=== PATIENT | male | born 1965 | race Caucasian/White ===

== ENCOUNTER 2019-07-03 17:46 | Inpatient (IN) | payer BC, MEDICAID ==
[2019-07-03] MEDS ORDERED: Ibuprofen 600 MG Tab PO ONE (18:31)
--- NOTE | 2019-07-03 18:38 | EDM.PDOC ---
ED HPI GENERAL MEDICAL PROBLEM - General Chief Complaint: Lower Extremity Injury/Pain Stated Complaint: KNEE SWELLED UP-COULD BE RELATED TO MEDS Time Seen by Provider: 07/03/19 18:33 Source of Information: Reports: Patient History Limitations: Reports: No Limitations - History of Present Illness INITIAL COMMENTS - FREE TEXT/NARRATIVE: pt arrived with a swollen red painful left leg. . This came up suddenly today. She has not had a injury. Onset: Today Duration: Hour(s): Location: Reports: Lower Extremity, Left Associated Symptoms: Reports: Fever/Chills knee Pain Score (Numeric/FACES): 6 - Related Data Allergies Allergy/AdvReac Type Severity Reaction Status Date / Time No Known Allergies Allergy Verified 07/03/19 18:11 Home Meds: Home Meds Gabapentin [Neurontin] 300 mg PO QID 07/03/19 [History] Naproxen 500 mg PO BID 07/03/19 [History] Past Medical History Musculoskeletal History: Reports: Back Pain, Chronic, Fracture, Other (See Below ) Other Musculoskeletal History: thumb - Infectious Disease History Infectious Disease History: Reports: Chicken Pox - Past Surgical History HEENT Surgical History: Reports: Myringotomy w Tube(s) Social & Family History - Tobacco Use Smoking Status *Q: Never Smoker - Caffeine Use Caffeine Use: Reports: Soda - Recreational Drug Use Recreational Drug Use: No Review of Systems - Review of Systems Review Of Systems: See Below Reason Not Obtained: pt arrived with a red hot left lowetr leg/ This did come up sudde Constitutional: Reports: Fever, Weakness Eyes: Reports: No Symptoms Ears: Reports: No Symptoms Nose: Reports: No Symptoms Mouth/Throat: Reports: No Symptoms Respiratory: Reports: No Symptoms Cardiovascular: Reports: No Symptoms GI/Abdominal: Reports: No Symptoms Genitourinary: Reports: No Symptoms, Other (swollen ) Musculoskeletal: Reports: No Symptoms ED EXAM, GENERAL - Physical Exam Exam: See Below Free Text/Narrative:: pt arrived with pain, redness and swelling in his left leg. This did come up suddenly today. He does not recall any wounds other than an area which is very scabed over. He did not injure the leg. Exam Limited By: No Limitations General Appearance: Alert, Anxious, Moderate Distress Ears: Normal TMs Nose: Normal Inspection Throat/Mouth: Normal Inspection Head: Atraumatic Neck: Normal Inspection Respiratory/Chest: No Respiratory Distress Cardiovascular: Regular Rate, Rhythm, Tachycardia GI/Abdominal: Soft, Non-Tender (Male) Exam: Deferred Rectal (Males) Exam: Deferred Back Exam: Normal Inspection Extremities: Other (pt has a normal rt leg. His left leg--lower is swollen very tight and is red from the ankle to the mid thigh. In the mid thigh area it is mainly red in the inner aspect of the leg. ) Neurological: Alert, Oriented, Normal Cognition Course - Vital Signs Last Recorded V/S: Last Vital Signs Temp 38.4 C H 07/03/19 18:09 Pulse 96 07/03/19 18:09 Resp 20 07/03/19 18:09 BP 142/84 H 07/03/19 18:09 Pulse Ox 97 07/03/19 18:09 - Orders/Labs/Meds Orders: Active Orders 24 hr Category Date Time Status CULTURE BLOOD [BC] Urgent Lab 07/03/19 18:30 Received CULTURE BLOOD [BC] Urgent Lab 07/03/19 18:40 Received Sodium Chloride 0.9% [Normal Saline] 1,000 ml Med 07/03/19 18:45 Active IV ASDIRECTED Sodium Chloride 0.9% [Normal Saline] 1,000 ml Med 07/03/19 19:30 Active IV ASDIRECTED Blood Culture x2 Reflex Set [OM.PC] Urgent Oth 07/03/19 18:21 Ordered Medication Orders Sodium Chloride (Normal Saline) 1,000 mls @ 999 mls/hr IV ASDIRECTED [facility] Last Admin: 07/03/19 20:08 Dose: 999 mls/hr Infusion: 07/03/19 19:55 Dose: 999 mls/hr Admin: 07/03/19 18:54 Dose: 999 mls/hr Sodium Chloride (Normal Saline) 1,000 mls @ 999 mls/hr IV ASDIRECTED [facility] Last Admin: 07/03/19 20:10 Dose: 999 mls/hr Labs: Laboratory Tests 07/03/19 07/03/19 07/03/19 Range/Units 18:40 18:40 18:45 WBC 16.0 H (4.5-11.0) K/uL RBC 4.92 (4.30-5.90) M/uL Hgb 13.9 (12.0-15.0) g/dL Hct 42.0 (40.0-54.0) % MCV 85 (80-98) fL MCH 28 (27-31) pg MCHC 33 (32-36) % Plt Count 200 (150-400) K/uL Neut % (Auto) 81 H (36-66) % Lymph % (Auto) 8 L (24-44) % [place] % (Auto) 10 H (2-6) % Eos % (Auto) 1 L (2-4) % Baso % (Auto) 0 (0-1) % Sodium 139 L (140-148) mmol/L Potassium 3.6 (3.6-5.2) mmol/L Chloride 103 (100-108) mmol/L Carbon Dioxide 26 (21-32) mmol/L Anion Gap 13.6 (5.0-14.0) mmol/L BUN 16 (7-18) mg/dL Creatinine 1.1 (0.8-1.3) mg/dL Est Cr Clr Drug Dosing 80.19 mL/min Estimated GFR (MDRD) > 60 (>60) Glucose 112 H (74-106) mg/dL Lactic Acid 2.3 H (0.4-2.0) mmol/L Calcium 8.9 (8.5-10.1) mg/dL Total Bilirubin 2.4 H (0.2-1.0) mg/dL AST 19 (15-37) U/L ALT 41 (12-78) U/L Alkaline Phosphatase 77 (46-116) U/L Total Protein 7.5 (6.4-8.2) g/dL Albumin 3.6 (3.4-5.0) g/dL Globulin 3.9 H (2.3-3.5) g/dL Albumin/Globulin Ratio 0.9 L (1.2-2.2) Meds: Medications Generic Name Dose Route Start Last Admin Trade Name Freq PRN Reason Stop Dose Admin Sodium Chloride 1,000 mls @ 999 mls/hr 07/03/19 18:45 07/03/19 20:08 Normal Saline IV 999 mls/hr ASDIRECTED VICTORIA Administration Sodium Chloride 1,000 mls @ 999 mls/hr 07/03/19 19:30 07/03/19 20:10 Normal Saline IV 999 mls/hr ASDIRECTED [facility] Administration Discontinued Medications Generic Name Dose Route Start Last Admin Trade Name Freq PRN Reason Stop Dose Admin Ceftriaxone Sodium 1 gm/ 50 mls @ 100 mls/hr 07/03/19 19:18 07/03/19 20:09 Sodium Chloride IV 07/03/19 19:47 100 mls/hr ONETIME ONE Administration Ibuprofen 600 mg 07/03/19 18:31 07/03/19 18:41 Motrin PO 07/03/19 18:32 600 mg ONETIME ONE Administration - Re-Assessments/Exams Free Text/Narrative Re-Assessment/Exam: 07/03/19 20:05 pt has a elevated wbc and a fever. His lactic acid id mildly elevated. He had a very rapid onset of the inflamation Departure - Departure Time of Disposition: 20:11 Disposition: Admitted As Inpatient 67 Condition: Fair Clinical Impression: Cellulitis of left leg - Discharge Information Referrals: Zuleika Chambers MD [Primary Care Provider] - Forms: ED Department Discharge Care Plan Goals: admit to Dr Gordon. - My Orders Last 24 Hours: My Active Orders 07/03/19 18:21 Blood Culture x2 Reflex Set [OM.PC] Urgent 07/03/19 18:30 CULTURE BLOOD [BC] Urgent 07/03/19 18:40 CULTURE BLOOD [BC] Urgent 07/03/19 18:45 Sodium Chloride 0.9% [Normal Saline] 1,000 ml IV ASDIRECTED 07/03/19 19:30 Sodium Chloride 0.9% [Normal Saline] 1,000 ml IV ASDIRECTED - Assessment/Plan Last 24 Hours: My Active Orders 07/03/19 18:21 Blood Culture x2 Reflex Set [OM.PC] Urgent 07/03/19 18:30 CULTURE BLOOD [BC] Urgent 07/03/19 18:40 CULTURE BLOOD [BC] Urgent 07/03/19 18:45 Sodium Chloride 0.9% [Normal Saline] 1,000 ml IV ASDIRECTED 07/03/19 19:30 Sodium Chloride 0.9% [Normal Saline] 1,000 ml IV ASDIRECTED
[2019-07-03] MEDS: Sodium Chloride 0.9% 1,000 ML IV SCH ×3 (18:54→22:31)
[2019-07-03] MEDS ORDERED: cefTRIAXone 1 GM in Sodium Chloride 0.9% 50 ML IV ONE (19:18)
[2019-07-03] MEDS ORDERED: Sodium Chloride 0.9% 1,000 ML IV SCH (19:30)
--- NOTE | 2019-07-03 20:04 | CRLUS ---
INDICATION: Left leg pain and swelling TECHNIQUE: Ultrasound venous duplex lower left extremity. Compression venous exam was performed using jones-scale, color Doppler, and spectral Doppler analysis. COMPARISON: None FINDINGS: Sonographic imaging demonstrates the left common femoral, deep femoral, superficial femoral, popliteal, posterior tibial and greater saphenous and the contralateral right common femoral veins to be fully compressible with normal color Doppler blood flow. Multiple left inguinal lymph nodes measuring up to 3.3 centimeters. IMPRESSION: No evidence of deep venous thrombosis left lower extremity. Multiple left inguinal lymph nodes with the largest measuring up to 3.3 centimeters. Dictated by Emiliano Yates MD @ 07/03/2019 8:03:59 PM Dictated by: Emiliano Yates MD @ 07/03/2019 20:04:07 (Electronically Signed)
--- NOTE | 2019-07-03 22:23 | HP ---
CHIEF COMPLAINT: Painful left leg. HISTORY OF PRESENT ILLNESS: A 54-year-old, who is otherwise healthy, has been dealing recently with some cervical radiculopathy. For the last 3 days, had increasing pain in his left leg where he has tried to work through it, but it has gotten more and more painful. He has been recently treated with gabapentin for cervical radiculopathy, but he thinks he is having side effects. He thought that this was a result of that he has been on his knees quite a bit and did sustain an area of abrasion with some scabbing about a week ago to the lateral aspect of his left knee. He called the clinic today thinking that he was having side effects of the gabapentin, wanted to stop it, but the nurse noted his symptoms and recommended that he go to the emergency room. He was evaluated by emergency room physician, was noted to have significant cellulitis to his left leg, and I was asked to admit the patient for further evaluation and treatment. The patient otherwise denies any other complaints. He has been battling a cold and he thinks he is having significant side effects from the gabapentin treating his cervical radiculopathy. CURRENT MEDICATIONS: Gabapentin 300 mg q.i.d. and naproxen 500 mg b.i.d. ALLERGIES: NO KNOWN DRUG ALLERGIES. PAST MEDICAL HISTORY: Cervical radiculopathy, otherwise no significant surgical medical problems. SOCIAL HISTORY: He is a nonsmoker. No significant alcohol use. FAMILY HISTORY: Mother had breast cancer, has heart disease on her side of the family. REVIEW OF SYSTEMS: Does have some cold symptoms. He does get a little bit short of breath at times, but no chest pain. No nausea, vomiting, diarrhea, or constipation. No urinary problems reported. He does have the pain, redness, and swelling to his left leg. He does have the neck pain with numbness in his fingers. OBJECTIVE: VITAL SIGNS: Temp 38.4, pulse 96, blood pressure 142/84, respiratory rate 20, O2 saturation 97% on room air, weight 131 kg. HEENT: Pharynx clear. NECK: Supple. No adenopathy or thyromegaly. LUNGS: Clear. HEART: Regular without murmurs. ABDOMEN: Soft, nontender. No mass or organomegaly palpated. EXTREMITIES: He does have increased warmth with tenderness, swelling, and erythema to his left leg, the inner aspect of his thigh extending down to the calf. Foot does not appear to be warm or red. He does have some scabbing lateral to the knee. DIAGNOSTIC DATA: Venous Doppler was negative for DVT. It did show multiple inguinal lymph nodes. LABORATORY DATA: White count 16,000 with 81% neutrophils, 8% lymphocytes, 10% monocytes. Hemoglobin 13.9, platelets 200,000. Sodium 139, potassium 3.6, chloride 103, glucose of 112, nonfasting. Liver functions were normal. Creatinine 1.1. Blood cultures have been obtained in the ER and are pending. ASSESSMENT AND PLAN: 1. Cellulitis, left leg. The patient has already been started on IV Rocephin, which we will continue. We will admit him inpatient. Anticipate more than 2 midnight stays. Transfer his care to the hospitalist service in the morning. 2. Cervical radicular radiculopathy, on gabapentin and naproxen, which we can continue. Otherwise, has been quite healthy. No history of diabetes. Emiliano Gordon MD /[id number]
[2019-07-03] MEDS: Naproxen 250 MG Tab PO SCH (22:31)
[2019-07-03] MEDS: Gabapentin 300 MG Cap PO SCH (22:31)
[2019-07-04] MEDS: Acetaminophen 325 MG Tab PO PRN ×2 (00:54→21:36)
[2019-07-04] MEDS: Sodium Chloride 0.9% 1,000 ML IV SCH (06:18)
[2019-07-04] MEDS: Gabapentin 300 MG Cap PO SCH ×4 (06:19→21:36)
[2019-07-04] MEDS ORDERED: Naproxen 250 MG Tab PO SCH (08:00)
[2019-07-04] MEDS: Naproxen 250 MG Tab PO SCH ×2 (08:27→16:42)
--- NOTE | 2019-07-04 09:38 | PCM.PN ---
- General Info Date of Service: 07/04/19 Subjective Update: No acute events overnight following admission. Patient thinks the redness and swelling have improved overnight. Muscle aches have nearly resolved. Still having a fair amount of pain in the left lower extremity and left medial thigh because of the infection. White blood cell count has improved. He's not having fevers. No nausea or shortness of breath. Functional Status: Reports: Pain Controlled, Tolerating Diet - Review of Systems General: Denies: Fever Musculoskeletal: Reports: Leg Pain - Patient Data Vitals - Most Recent: Last Vital Signs Temp 36.3 C 07/04/19 08:00 Pulse 83 07/04/19 02:00 Resp 12 07/04/19 08:00 BP 132/87 07/04/19 08:00 Pulse Ox 99 07/04/19 08:00 Weight - Most Recent: 131.542 kg I&O - Last 24 Hours: Intake & Output 07/03/19 07/04/19 07/04/19 22:59 06:59 14:59 Intake Total 1885 Output Total 300 300 550 Balance -300 1585 -550 Lab Results Last 24 Hours: Laboratory Results - last 24 hr 07/03/19 07/03/19 07/03/19 Range/Units 18:40 18:40 18:45 WBC 16.0 H (4.5-11.0) K/uL RBC 4.92 (4.30-5.90) M/uL Hgb 13.9 (12.0-15.0) g/dL Hct 42.0 (40.0-54.0) % MCV 85 (80-98) fL MCH 28 (27-31) pg MCHC 33 (32-36) % Plt Count 200 (150-400) K/uL Neut % (Auto) 81 H (36-66) % Lymph % (Auto) 8 L (24-44) % [place] % (Auto) 10 H (2-6) % Eos % (Auto) 1 L (2-4) % Baso % (Auto) 0 (0-1) % Sodium 139 L (140-148) mmol/L Potassium 3.6 (3.6-5.2) mmol/L Chloride 103 (100-108) mmol/L Carbon Dioxide 26 (21-32) mmol/L Anion Gap 13.6 (5.0-14.0) mmol/L BUN 16 (7-18) mg/dL Creatinine 1.1 (0.8-1.3) mg/dL Est Cr Clr Drug Dosing 80.19 mL/min Estimated GFR (MDRD) > 60 (>60) Glucose 112 H (74-106) mg/dL Lactic Acid 2.3 H (0.4-2.0) mmol/L Calcium 8.9 (8.5-10.1) mg/dL Total Bilirubin 2.4 H (0.2-1.0) mg/dL AST 19 (15-37) U/L ALT 41 (12-78) U/L Alkaline Phosphatase 77 (46-116) U/L Total Protein 7.5 (6.4-8.2) g/dL Albumin 3.6 (3.4-5.0) g/dL Globulin 3.9 H (2.3-3.5) g/dL Albumin/Globulin Ratio 0.9 L (1.2-2.2) 07/04/19 Range/Units 04:00 WBC 13.7 H (4.5-11.0) K/uL RBC 4.43 (4.30-5.90) M/uL Hgb 12.7 (12.0-15.0) g/dL Hct 38.5 L (40.0-54.0) % MCV 87 (80-98) fL MCH 29 (27-31) pg MCHC 33 (32-36) % Plt Count 175 (150-400) K/uL Neut % (Auto) (36-66) % Lymph % (Auto) (24-44) % [place] % (Auto) (2-6) % Eos % (Auto) (2-4) % Baso % (Auto) (0-1) % Sodium (140-148) mmol/L Potassium (3.6-5.2) mmol/L Chloride (100-108) mmol/L Carbon Dioxide (21-32) mmol/L Anion Gap (5.0-14.0) mmol/L BUN (7-18) mg/dL Creatinine (0.8-1.3) mg/dL Est Cr Clr Drug Dosing mL/min Estimated GFR (MDRD) (>60) Glucose (74-106) mg/dL Lactic Acid (0.4-2.0) mmol/L Calcium (8.5-10.1) mg/dL Total Bilirubin (0.2-1.0) mg/dL AST (15-37) U/L ALT (12-78) U/L Alkaline Phosphatase (46-116) U/L Total Protein (6.4-8.2) g/dL Albumin (3.4-5.0) g/dL Globulin (2.3-3.5) g/dL Albumin/Globulin Ratio (1.2-2.2) Med Orders - Current: Current Medications Acetaminophen (Tylenol) 650 mg PO Q4H PRN PRN Reason: Pain (Mild 1-3)/fever Last Admin: 07/04/19 00:54 Dose: 650 mg Gabapentin (Neurontin) 300 mg PO QID [facility] Last Admin: 07/04/19 06:19 Dose: Not Given Cefazolin Sodium/Dextrose 1 gm (/ Premix) 50 mls @ 100 mls/hr IV Q8H [facility] Lactobacillus Rhamnosus (Culturelle) 1 cap PO BID [facility] Naproxen (Naprosyn) 500 mg PO BIDMEALS [facility] Last Admin: 07/04/19 08:27 Dose: 500 mg Discontinued Medications Sodium Chloride (Normal Saline) 1,000 mls @ 999 mls/hr IV ASDIRECTED [facility] Last Admin: 07/03/19 20:08 Dose: 999 mls/hr Sodium Chloride (Normal Saline) 1,000 mls @ 999 mls/hr IV ASDIRECTED [facility] Last Admin: 07/03/19 20:10 Dose: 999 mls/hr Ceftriaxone Sodium 1 gm/ (Sodium Chloride) 50 mls @ 100 mls/hr IV ONETIME ONE Stop: 07/03/19 19:47 Last Admin: 07/03/19 20:09 Dose: 100 mls/hr Sodium Chloride (Normal Saline) 1,000 mls @ 125 mls/hr IV ASDIRECTED [facility] Last Admin: 07/04/19 06:18 Dose: 125 mls/hr Ceftriaxone Sodium 1 gm/ (Sodium Chloride) 50 mls @ 100 mls/hr IV Q24H [facility] Ibuprofen (Motrin) 600 mg PO ONETIME ONE Stop: 07/03/19 18:32 Last Admin: 07/03/19 18:41 Dose: 600 mg - Exam Quality Assessment: No: Supplemental Oxygen General: Alert, Oriented, Cooperative, No Acute Distress Lungs: Normal Respiratory Effort Cardiovascular: Regular Rate, Regular Rhythm GI/Abdominal Exam: Soft, No Distention Extremities: Increased Warmth (left leg from foot to mid thigh). No: Pedal Edema Skin: Warm, Dry, Rash (erythema from left foot to knee and some on distal thigh medially ) Psy/Mental Status: Alert, Normal Affect - Problem List Review Problem List Initiated/Reviewed/Updated: Yes - My Orders Last 24 Hours: My Active Orders 07/04/19 09:00 Lactobacillus Rhamnosus GG [Culturelle] 1 cap PO BID 07/04/19 09:45 Sodium Chloride 0.9% [Normal Saline] 1,000 ml IV ASDIRECTED 07/04/19 10:00 ceFAZolin [Ancef] 1 gm Premix Bag 1 bag IV Q8H - Plan Plan:: ASSESSMENT AND PLAN - Left leg cellulitis - clinically improving and white blood cell count trending down but still a fair amount of erythema and swelling. He does not have severe pain of the joints wide don't believe the joint is involved at this time. -Antibiotic coverage with cefazolin -Follow-up cultures -Pain control -Increase activity as tolerated Cervical radiculopathy - stable with use of gabapentin. Maintenance issues - - DVT prophylaxis - mechanical - GI prophylaxis - not indicated - Nutrition - regular Disposition - I would anticipate discharge home after the hospital stay Gustavo Regan M.D.
[2019-07-04] MEDS ORDERED: Sodium Chloride 0.9% 1,000 ML IV SCH (09:45)
[2019-07-04] MEDS: Lactobacillus Rhamnosus GG (Probiotic) Cap PO SCH ×2 (09:58→21:36)
[2019-07-04] MEDS: ceFAZolin 1 GM in Premix Bag 1 BAG IV SCH ×2 (09:59→18:03)
[2019-07-04] MEDS ORDERED: cefTRIAXone 1 GM in Sodium Chloride 0.9% 50 ML IV SCH (20:00)
[2019-07-05] MEDS: ceFAZolin 1 GM in Premix Bag 1 BAG IV SCH ×3 (01:28→17:26)
[2019-07-05] MEDS: Gabapentin 300 MG Cap PO SCH ×4 (06:15→22:00)
[2019-07-05] MEDS: Naproxen 250 MG Tab PO SCH ×2 (09:28→16:58)
[2019-07-05] MEDS: Lactobacillus Rhamnosus GG (Probiotic) Cap PO SCH ×2 (09:29→20:16)
--- NOTE | 2019-07-05 09:48 | PCM.PN ---
- General Info Date of Service: 07/05/19 Subjective Update: No acute events overnight. Pain in the left leg is decreasing. Swelling has been improving but he still has significant swelling around the knee and including the knee joint. No fevers overnight. Cultures negative so far. No nausea or abdominal pain. Functional Status: Reports: Pain Controlled, Tolerating Diet - Review of Systems General: Denies: Fever Musculoskeletal: Reports: Leg Pain, Joint Pain (left knee ) - Patient Data Vitals - Most Recent: Last Vital Signs Temp 36.0 C 07/05/19 03:58 Pulse 81 07/05/19 03:58 Resp 16 07/05/19 03:58 BP 105/61 07/05/19 03:58 Pulse Ox 98 07/05/19 03:58 Weight - Most Recent: 131.542 kg I&O - Last 24 Hours: Intake & Output 07/04/19 07/05/19 07/05/19 22:59 06:59 14:59 Intake Total 1000 816 Output Total 600 500 Balance 400 316 Jerardo Results Last 24 Hours: Microbiology 07/03/19 18:30 Aerobic Blood Culture - Preliminary Blood - Arm, Right NO GROWTH AFTER 1 DAY Anaerobic Blood Culture - Preliminary NO GROWTH AFTER 1 DAY 07/03/19 18:40 Aerobic Blood Culture - Preliminary Blood - Arm, Right NO GROWTH AFTER 1 DAY Anaerobic Blood Culture - Preliminary NO GROWTH AFTER 1 DAY Med Orders - Current: Current Medications Acetaminophen (Tylenol) 650 mg PO Q4H PRN PRN Reason: Pain (Mild 1-3)/fever Last Admin: 07/04/19 21:36 Dose: 650 mg Gabapentin (Neurontin) 300 mg PO QID [facility] Last Admin: 07/05/19 09:29 Dose: 300 mg Cefazolin Sodium/Dextrose 1 gm (/ Premix) 50 mls @ 100 mls/hr IV Q8H [facility] Last Admin: 07/05/19 09:29 Dose: 100 mls/hr Sodium Chloride (Normal Saline) 1,000 mls @ 50 mls/hr IV ASDIRECTED [facility] Last Admin: 07/04/19 20:27 Dose: 50 mls/hr Lactobacillus Rhamnosus (Culturelle) 1 cap PO BID [facility] Last Admin: 07/05/19 09:29 Dose: 1 cap Naproxen (Naprosyn) 500 mg PO BIDMEALS [facility] Last Admin: 07/05/19 09:28 Dose: 500 mg Discontinued Medications Sodium Chloride (Normal Saline) 1,000 mls @ 999 mls/hr IV ASDIRECTED [facility] Last Admin: 07/03/19 20:08 Dose: 999 mls/hr Sodium Chloride (Normal Saline) 1,000 mls @ 999 mls/hr IV ASDIRECTED [facility] Last Admin: 07/03/19 20:10 Dose: 999 mls/hr Ceftriaxone Sodium 1 gm/ (Sodium Chloride) 50 mls @ 100 mls/hr IV ONETIME ONE Stop: 07/03/19 19:47 Last Admin: 07/03/19 20:09 Dose: 100 mls/hr Sodium Chloride (Normal Saline) 1,000 mls @ 125 mls/hr IV ASDIRECTED [facility] Last Admin: 07/04/19 06:18 Dose: 125 mls/hr Ceftriaxone Sodium 1 gm/ (Sodium Chloride) 50 mls @ 100 mls/hr IV Q24H [facility] Ibuprofen (Motrin) 600 mg PO ONETIME ONE Stop: 07/03/19 18:32 Last Admin: 07/03/19 18:41 Dose: 600 mg - Exam Quality Assessment: No: Supplemental Oxygen General: Alert, Oriented, Cooperative, No Acute Distress Lungs: Normal Respiratory Effort GI/Abdominal Exam: Soft, No Distention Extremities: No Pedal Edema, Increased Warmth (left knee and medial left leg above and below the knee ) Skin: Warm, Dry, Rash (erythema of left knee and surrounding tissue ) Psy/Mental Status: Alert, Normal Affect - Problem List Review Problem List Initiated/Reviewed/Updated: Yes - My Orders Last 24 Hours: My Active Orders 07/04/19 09:00 Lactobacillus Rhamnosus GG [Culturelle] 1 cap PO BID 07/04/19 09:45 Sodium Chloride 0.9% [Normal Saline] 1,000 ml IV ASDIRECTED 07/04/19 10:00 ceFAZolin [Ancef] 1 gm Premix Bag 1 bag IV Q8H 07/05/19 09:46 Consult to Physician [CONS] Routine Convert IV to Saline Lock [OM.PC] Routine 07/05/19 09:47 Notify Provider Consults [RC] ASDIRECTED 07/06/19 05:00 BASIC METABOLIC PANEL,BMP [CHEM] Timed CBC W/O DIFF,HEMOGRAM [HEME] Timed (1) - Plan Plan:: ASSESSMENT AND PLAN - Left leg cellulitis - clinically improving from a cellulitis standpoint but still significant swelling and warmth around the knee. I'm a little concerned about a septic joint. -Orthopedic surgery consultation -Antibiotic coverage with cefazolin -Follow-up cultures -Pain control -Increase activity as tolerated Cervical radiculopathy - stable with use of gabapentin. Maintenance issues - - DVT prophylaxis - mechanical - GI prophylaxis - not indicated - Nutrition - regular Disposition - I would anticipate discharge home after the hospital stay Gustavo Regan M.D.
[2019-07-05] MEDS: Acetaminophen 325 MG Tab PO PRN (20:59)
[2019-07-06] MEDS: ceFAZolin 1 GM in Premix Bag 1 BAG IV SCH ×3 (02:08→17:04)
--- NOTE | 2019-07-06 09:12 | PCM.PN ---
- General Info Date of Service: 07/06/19 Subjective Update: No acute events overnight. He did have one low-grade fever. Cellulitis continues to improve. Still has some swelling and pain in the left knee but this is a little better. He is able to bear some weight. Cultures negative. No organisms seen during joint aspiration last night. Feels a little "punky" this morning but otherwise doing okay. Functional Status: Reports: Pain Controlled, Tolerating Diet - Review of Systems General: Reports: Fever Musculoskeletal: Reports: Joint Pain (left knee) Skin: Reports: Rash (erythema around left knee anteriorly and medially ) - Patient Data Vitals - Most Recent: Last Vital Signs Temp 36.9 C 07/06/19 02:13 Pulse 87 07/06/19 02:13 Resp 15 07/06/19 02:13 BP 110/65 07/06/19 02:13 Pulse Ox 97 07/06/19 02:13 Weight - Most Recent: 131.542 kg I&O - Last 24 Hours: Intake & Output 07/05/19 07/06/19 07/06/19 22:59 06:59 14:59 Intake Total 648 50 Balance 648 50 Lab Results Last 24 Hours: Laboratory Results - last 24 hr 07/05/19 07/06/19 07/06/19 Range/Units 18:08 03:42 03:42 WBC 12.0 H (4.5-11.0) K/uL RBC 4.50 (4.30-5.90) M/uL Hgb 12.7 (12.0-15.0) g/dL Hct 38.9 L (40.0-54.0) % MCV 86 (80-98) fL MCH 28 (27-31) pg MCHC 33 (32-36) % Plt Count 236 (150-400) K/uL Sodium 138 L (140-148) mmol/L Potassium 3.9 (3.6-5.2) mmol/L Chloride 104 (100-108) mmol/L Carbon Dioxide 27 (21-32) mmol/L Anion Gap 10.9 (5.0-14.0) mmol/L BUN 14 (7-18) mg/dL Creatinine 1.0 (0.8-1.3) mg/dL Est Cr Clr Drug Dosing 88.21 mL/min Estimated GFR (MDRD) > 60 (>60) Glucose 139 H (74-106) mg/dL Calcium 8.4 L (8.5-10.1) mg/dL Fluid Type Oth Fluid WBC 262 /ul Fluid RBC 1588 /ul Fluid Diff Comment Lt. knee fluid Fluid Mononuclear Cell 100 % Fl Polymorphonucl Cell 0 % Jerardo Results Last 24 Hours: Microbiology 07/05/19 18:08 Gram Stain - Final Knee Fluid - Knee, Left 07/03/19 18:30 Aerobic Blood Culture - Preliminary Blood - Arm, Right NO GROWTH AFTER 2 DAYS Anaerobic Blood Culture - Preliminary NO GROWTH AFTER 2 DAYS 07/03/19 18:40 Aerobic Blood Culture - Preliminary Blood - Arm, Right NO GROWTH AFTER 2 DAYS Anaerobic Blood Culture - Preliminary NO GROWTH AFTER 2 DAYS Med Orders - Current: Current Medications Acetaminophen (Tylenol) 650 mg PO Q4H PRN PRN Reason: Pain (Mild 1-3)/fever Last Admin: 07/05/19 20:59 Dose: 650 mg Gabapentin (Neurontin) 300 mg PO QID [facility] Last Admin: 07/05/19 22:00 Dose: 300 mg Cefazolin Sodium/Dextrose 1 gm (/ Premix) 50 mls @ 100 mls/hr IV Q8H [facility] Last Admin: 07/06/19 02:08 Dose: 100 mls/hr Lactobacillus Rhamnosus (Culturelle) 1 cap PO BID [facility] Last Admin: 07/05/19 20:16 Dose: 1 cap Naproxen (Naprosyn) 500 mg PO BIDMEALS [facility] Last Admin: 07/05/19 16:58 Dose: Not Given Discontinued Medications Sodium Chloride (Normal Saline) 1,000 mls @ 999 mls/hr IV ASDIRECTED [facility] Last Admin: 07/03/19 20:08 Dose: 999 mls/hr Sodium Chloride (Normal Saline) 1,000 mls @ 999 mls/hr IV ASDIRECTED [facility] Last Admin: 07/03/19 20:10 Dose: 999 mls/hr Ceftriaxone Sodium 1 gm/ (Sodium Chloride) 50 mls @ 100 mls/hr IV ONETIME ONE Stop: 07/03/19 19:47 Last Admin: 07/03/19 20:09 Dose: 100 mls/hr Sodium Chloride (Normal Saline) 1,000 mls @ 125 mls/hr IV ASDIRECTED [facility] Last Admin: 07/04/19 06:18 Dose: 125 mls/hr Ceftriaxone Sodium 1 gm/ (Sodium Chloride) 50 mls @ 100 mls/hr IV Q24H [facility] Sodium Chloride (Normal Saline) 1,000 mls @ 50 mls/hr IV ASDIRECTED [facility] Last Admin: 07/04/19 20:27 Dose: 50 mls/hr Ibuprofen (Motrin) 600 mg PO ONETIME ONE Stop: 07/03/19 18:32 Last Admin: 07/03/19 18:41 Dose: 600 mg Lidocaine HCl (Xylocaine-Mpf 1%) 5 ml INJECT ONETIME ONE Stop: 07/05/19 13:49 Last Admin: 07/05/19 17:29 Dose: 5 ml - Exam Quality Assessment: No: Supplemental Oxygen General: Alert, Oriented, Cooperative, No Acute Distress Lungs: Normal Respiratory Effort GI/Abdominal Exam: Soft, No Distention Extremities: No Pedal Edema, Increased Warmth (left knee) Skin: Warm, Dry, Rash (erythema left knee ) Psy/Mental Status: Alert, Normal Affect - Problem List Review Problem List Initiated/Reviewed/Updated: Yes - My Orders Last 24 Hours: My Active Orders 07/05/19 09:46 Consult to Physician [CONS] Routine Convert IV to Saline Lock [OM.PC] Routine 07/05/19 09:47 Notify Provider Consults [RC] ASDIRECTED 07/07/19 05:00 CBC W/O DIFF,HEMOGRAM [HEME] Timed (1) - Plan Plan:: ASSESSMENT AND PLAN - Left leg cellulitis - clinically improving from a cellulitis standpoint but still significant swelling and warmth around the knee. Fluid aspiration from the knee did not suggest septic joint. -Orthopedic surgery consultation appreciated -Antibiotic coverage with cefazolin -Follow-up cultures -Pain control -Increase activity as tolerated Cervical radiculopathy - stable with use of gabapentin. Maintenance issues - - DVT prophylaxis - mechanical - GI prophylaxis - not indicated - Nutrition - regular Disposition - I would anticipate discharge home after the hospital stay Gustavo Regan M.D.
[2019-07-06] MEDS: Gabapentin 300 MG Cap PO SCH ×4 (09:37→21:36)
[2019-07-06] MEDS: Lactobacillus Rhamnosus GG (Probiotic) Cap PO SCH ×2 (09:37→20:22)
[2019-07-06] MEDS: Naproxen 250 MG Tab PO SCH ×2 (09:37→17:04)
--- NOTE | 2019-07-06 12:43 | PCM.CONS ---
H&P History of Present Illness - General Date of Service: 07/05/19 Admit Problem/Dx: Admission Diagnosis/Problem Admission Diagnosis/Problem Cellulitis Source of Information: Patient, Provider History Limitations: Reports: No Limitations - History of Present Illness Initial Comments - Free Text/Narative: Admitted with a history of left leg pain that had progressed over the course of a couple of days. Was admitted and started on IV antibiotics for cellulitis. Cellulitis has significantly improved but has persistent left knee pain and decreased ROM. Asked to evaluate for possible septic joint. Onset of Symptoms: Reports: Gradual Duration of Symptoms: Reports: Day(s): Location: Reports: Lower Extremity, Left Quality: Reports: Ache Severity: Moderate Worsens with: Reports: Movement Associated Symptoms: Reports: Fever/Chills knee Pain Score (Numeric/FACES): 5 - Related Data Allergies/Adverse Reactions: Allergies Allergy/AdvReac Type Severity Reaction Status Date / Time No Known Allergies Allergy Verified 07/03/19 18:11 Home Medications: Home Meds Naproxen 500 mg PO BID 07/03/19 [History] RX: Gabapentin [Neurontin] 300 mg PO QID 07/03/19 [History] Past Medical History HEENT History: Reports: Impaired Vision Musculoskeletal History: Reports: Fracture, Neck Pain, Chronic, Other (See Below ) Other Musculoskeletal History: thumb Endocrine/Metabolic History: Reports: Obesity/BMI 30+ - Infectious Disease History Infectious Disease History: Reports: Chicken Pox, Mononucleosis, Mumps - Past Surgical History HEENT Surgical History: Reports: Myringotomy w Tube(s) Social & Family History - Tobacco Use Smoking Status *Q: Never Smoker - Caffeine Use Caffeine Use: Reports: Soda - Recreational Drug Use Recreational Drug Use: No H&P Review of Systems - Review of Systems: Review Of Systems: See Below General: Reports: Fever Exam - Exam Exam: See Below - Vital Signs Vital Signs: Last Vital Signs Temp 36.8 C 07/06/19 08:00 Pulse 86 07/06/19 08:00 Resp 14 07/06/19 08:00 BP 132/84 07/06/19 08:00 Pulse Ox 97 07/06/19 08:00 Weight: 131.542 kg - Exam General: Alert, Oriented, 4 Extremities: Joint Swelling, Leg Pain, Limited Range of Motion, Increased Warmth , Redness, Other (small effusion, no supra-patellar bursitis, ROM 0-70, ) - Patient Data Lab Results Last 24 hrs: Laboratory Results - last 24 hr 07/05/19 07/06/19 07/06/19 Range/Units 18:08 03:42 03:42 WBC 12.0 H (4.5-11.0) K/uL RBC 4.50 (4.30-5.90) M/uL Hgb 12.7 (12.0-15.0) g/dL Hct 38.9 L (40.0-54.0) % MCV 86 (80-98) fL MCH 28 (27-31) pg MCHC 33 (32-36) % Plt Count 236 (150-400) K/uL Sodium 138 L (140-148) mmol/L Potassium 3.9 (3.6-5.2) mmol/L Chloride 104 (100-108) mmol/L Carbon Dioxide 27 (21-32) mmol/L Anion Gap 10.9 (5.0-14.0) mmol/L BUN 14 (7-18) mg/dL Creatinine 1.0 (0.8-1.3) mg/dL Est Cr Clr Drug Dosing 88.21 mL/min Estimated GFR (MDRD) > 60 (>60) Glucose 139 H (74-106) mg/dL Calcium 8.4 L (8.5-10.1) mg/dL Fluid Type Oth Fluid WBC 262 /ul Fluid RBC 1588 /ul Fluid Diff Comment Lt. knee fluid Fluid Mononuclear Cell 100 % Fl Polymorphonucl Cell 0 % Result Diagrams: 07/06/19 03:42 07/06/19 03:42 Jerardo Results Last 24 hrs: Microbiology 07/05/19 18:08 Gram Stain - Final Knee Fluid - Knee, Left 07/03/19 18:30 Aerobic Blood Culture - Preliminary Blood - Arm, Right NO GROWTH AFTER 2 DAYS Anaerobic Blood Culture - Preliminary NO GROWTH AFTER 2 DAYS 07/03/19 18:40 Aerobic Blood Culture - Preliminary Blood - Arm, Right NO GROWTH AFTER 2 DAYS Anaerobic Blood Culture - Preliminary NO GROWTH AFTER 2 DAYS Consult PN Assessment/Plan Procedures: Procedures EMERGENCY DEPT VISIT (06/08/16) IMMUNIZATION ADMIN (06/08/16) MRI NECK SPINE W/O DYE (01/14/17) TDAP VACCINE 7 YRS/> IM (06/08/16) (1) Cellulitis of left leg SNOMED Code(s): 553504576 Code(s): L03.116 - CELLULITIS OF LEFT LOWER LIMB Current Visit: Yes Problem List Initiated/Reviewed/Updated: Yes My Orders Last 24 Hours: My Active Orders 07/05/19 18:08 CULTURE BODY FLUID + SMEAR [RM] Routine Plan: Resolving cellulitis with persistent knee pain, limited ROM and erythema. Does not appear to have a significant effusion and ROM is better than is typical with septic joint. Will rule out infected joint with aspiration. Can access the joint superior-lateral away from area of erythema. My initial impression is that this is not a septic joint.
--- NOTE | 2019-07-06 14:25 | PCM.CONSN ---
- General Info Date of Service: 07/06/19 - Review of Systems Musculoskeletal: Reports: Leg Pain, Joint Swelling - Patient Data Vitals - Most Recent: Last Vital Signs Temp 36.4 C 07/06/19 12:00 Pulse 82 07/06/19 12:00 Resp 14 07/06/19 12:00 BP 138/96 H 07/06/19 12:00 Pulse Ox 99 07/06/19 12:00 Weight - Most Recent: 131.542 kg I&O - Last 24 Hours: Intake & Output 07/05/19 07/06/19 07/06/19 22:59 06:59 14:59 Intake Total 648 50 Output Total 500 Balance 648 50 -500 Lab Results Last 24 Hours: Laboratory Results - last 24 hr 07/05/19 07/06/19 07/06/19 Range/Units 18:08 03:42 03:42 WBC 12.0 H (4.5-11.0) K/uL RBC 4.50 (4.30-5.90) M/uL Hgb 12.7 (12.0-15.0) g/dL Hct 38.9 L (40.0-54.0) % MCV 86 (80-98) fL MCH 28 (27-31) pg MCHC 33 (32-36) % Plt Count 236 (150-400) K/uL Sodium 138 L (140-148) mmol/L Potassium 3.9 (3.6-5.2) mmol/L Chloride 104 (100-108) mmol/L Carbon Dioxide 27 (21-32) mmol/L Anion Gap 10.9 (5.0-14.0) mmol/L BUN 14 (7-18) mg/dL Creatinine 1.0 (0.8-1.3) mg/dL Est Cr Clr Drug Dosing 88.21 mL/min Estimated GFR (MDRD) > 60 (>60) Glucose 139 H (74-106) mg/dL Calcium 8.4 L (8.5-10.1) mg/dL Fluid Type Oth Fluid WBC 262 /ul Fluid RBC 1588 /ul Fluid Diff Comment Lt. knee fluid Fluid Mononuclear Cell 100 % Fl Polymorphonucl Cell 0 % Jerardo Results Last 24 Hours: Microbiology 07/05/19 18:08 Gram Stain - Final Knee Fluid - Knee, Left 07/03/19 18:30 Aerobic Blood Culture - Preliminary Blood - Arm, Right NO GROWTH AFTER 2 DAYS Anaerobic Blood Culture - Preliminary NO GROWTH AFTER 2 DAYS 07/03/19 18:40 Aerobic Blood Culture - Preliminary Blood - Arm, Right NO GROWTH AFTER 2 DAYS Anaerobic Blood Culture - Preliminary NO GROWTH AFTER 2 DAYS Med Orders - Current: Current Medications Acetaminophen (Tylenol) 650 mg PO Q4H PRN PRN Reason: Pain (Mild 1-3)/fever Last Admin: 07/05/19 20:59 Dose: 650 mg Gabapentin (Neurontin) 300 mg PO QID [facility] Last Admin: 07/06/19 10:12 Dose: Not Given Cefazolin Sodium/Dextrose 1 gm (/ Premix) 50 mls @ 100 mls/hr IV Q8H [facility] Last Admin: 07/06/19 10:12 Dose: 100 mls/hr Lactobacillus Rhamnosus (Culturelle) 1 cap PO BID [facility] Last Admin: 07/06/19 09:37 Dose: 1 cap Naproxen (Naprosyn) 500 mg PO BIDMEALS [facility] Last Admin: 07/06/19 09:37 Dose: 500 mg Discontinued Medications Sodium Chloride (Normal Saline) 1,000 mls @ 999 mls/hr IV ASDIRECTED [facility] Last Admin: 07/03/19 20:08 Dose: 999 mls/hr Sodium Chloride (Normal Saline) 1,000 mls @ 999 mls/hr IV ASDIRECTED [facility] Last Admin: 07/03/19 20:10 Dose: 999 mls/hr Ceftriaxone Sodium 1 gm/ (Sodium Chloride) 50 mls @ 100 mls/hr IV ONETIME ONE Stop: 07/03/19 19:47 Last Admin: 07/03/19 20:09 Dose: 100 mls/hr Sodium Chloride (Normal Saline) 1,000 mls @ 125 mls/hr IV ASDIRECTED [facility] Last Admin: 07/04/19 06:18 Dose: 125 mls/hr Ceftriaxone Sodium 1 gm/ (Sodium Chloride) 50 mls @ 100 mls/hr IV Q24H [facility] Sodium Chloride (Normal Saline) 1,000 mls @ 50 mls/hr IV ASDIRECTED [facility] Last Admin: 07/04/19 20:27 Dose: 50 mls/hr Ibuprofen (Motrin) 600 mg PO ONETIME ONE Stop: 07/03/19 18:32 Last Admin: 07/03/19 18:41 Dose: 600 mg Lidocaine HCl (Xylocaine-Mpf 1%) 5 ml INJECT ONETIME ONE Stop: 07/05/19 13:49 Last Admin: 07/05/19 17:29 Dose: 5 ml - Exam General: Alert, Oriented Extremities: Joint Swelling, Limited Range of Motion, Redness, Other (Slight improvement from last night, still limited rom 20-70 degrees) Consult PN Assessment/Plan Procedures: Procedures EMERGENCY DEPT VISIT (06/08/16) IMMUNIZATION ADMIN (06/08/16) MRI NECK SPINE W/O DYE (01/14/17) TDAP VACCINE 7 YRS/> IM (06/08/16) Aspiration left knee joint (07/05/2019) (1) Cellulitis of left leg SNOMED Code(s): 831951659 Code(s): L03.116 - CELLULITIS OF LEFT LOWER LIMB Current Visit: Yes Problem List Initiated/Reviewed/Updated: Yes My Orders Last 24 Hours: My Active Orders 07/05/19 18:08 CULTURE BODY FLUID + SMEAR [RM] Routine Plan: Aspirated yesterday evening, minimal fluid in joint, increased RBCs from a couple of passes with the needle, not cloudy, cell count with only 262 WBCs No evidence of septic joint. Do not think irrigation is indicated or would be particularly helpful. Continue ABX.
[2019-07-06] MEDS: Acetaminophen 325 MG Tab PO PRN (21:37)
[2019-07-07] MEDS: ceFAZolin 1 GM in Premix Bag 1 BAG IV SCH ×3 (02:05→18:23)
[2019-07-07] MEDS: Gabapentin 300 MG Cap PO SCH ×4 (06:10→21:31)
[2019-07-07] MEDS: Naproxen 250 MG Tab PO SCH ×2 (08:03→16:18)
[2019-07-07] MEDS: Lactobacillus Rhamnosus GG (Probiotic) Cap PO SCH ×2 (08:03→21:31)
[2019-07-07] MEDS ORDERED: Gadoteridol 279.3 MG/ML 20 ML SDV IV SCH (10:00)
--- NOTE | 2019-07-07 11:10 | CRLMR ---
HISTORY: Left knee swelling, cannot bend knee. Works laying uvaldo, using new set of knee pads. TECHNIQUE: Axial, sagittal and coronal T1, proton density, proton density fat-sat and T2 fat-sat images were obtained of the left knee with and without contrast administration. 20 cc ProHance was administered. COMPARISON: None. FINDINGS: Medial compartment: Medial meniscus: Multidirectional tear of the body and posterior horn of the medial meniscus, with horizontal and vertical components. Articular cartilage: Focal near full-thickness chondral defect in the medial femoral condyle measuring 2 mm in medial-lateral dimension (series 9, image 17). Background of diffuse grade 2 chondromalacia. - Lateral compartment: Lateral meniscus: Intact. Articular cartilage: Intact without evidence of focal defect or chondral thinning. - Patellofemoral compartment: Articular cartilage intact without evidence of focal defect or chondral thinning. - Ligaments: The anterior and posterior cruciate ligaments are intact. Medial collateral ligament and lateral ligamentous complex are maintained. - Extensor mechanism: Distal quadriceps tendon and patellar tendon are intact. The medial and lateral patellar restraints are intact. No patellar subluxation or isael. - Joint space: No joint effusion. - Bones and soft tissues: No acute fracture or AVN. No evidence of infiltrative bone marrow process. Diffuse subcutaneous edema, with focal fluid anterior to the patella and patellar tendon likely due to prepatellar bursitis. Small T1 and T2 hypointense focus which is nonenhancing likely a bone island in the medial femoral condyle. Enhancement of the subcutaneous edema on postcontrast images. No pathologic enhancement within the bones is identified. - IMPRESSION: 1. Prepatellar bursitis. 2. Multidirectional tear of the body and posterior horn of the medial meniscus. 3. Diffuse subcutaneous edema. 4. Medial compartment chondromalacia, and small focal near full-thickness chondral defect. 5. No acute fracture. Cruciate and collateral ligaments are intact. Dictated by Emiliano Castro MD @ Jul 07 2019 10:56AM Signed by Dr. Eimliano Castro @ Jul 07 2019 11:08AM
--- NOTE | 2019-07-07 13:24 | PCM.PN ---
- General Info Date of Service: 07/07/19 Subjective Update: There were no acute events overnight. Patient is still having some discomfort in the knee but he thinks it's a little better today. Still has a limited range of motion. No fevers overnight. No nausea. No positive culture results so far. We did obtain an MRI of the knee this morning which showed prepatellar bursitis. The bursa was aspirated this afternoon and sent for culture. Functional Status: Reports: Pain Controlled, Tolerating Diet - Review of Systems General: Denies: Fever - Patient Data Vitals - Most Recent: Last Vital Signs Temp 36.2 C 07/07/19 11:25 Pulse 87 07/07/19 11:25 Resp 16 07/07/19 11:25 BP 136/88 07/07/19 11:25 Pulse Ox 97 07/07/19 11:25 Weight - Most Recent: 131.542 kg I&O - Last 24 Hours: Intake & Output 07/06/19 07/07/19 07/07/19 22:59 06:59 14:59 Intake Total 50 Output Total 700 600 Balance -650 -600 Lab Results Last 24 Hours: Laboratory Results - last 24 hr 07/07/19 Range/Units 04:35 WBC 11.5 H (4.5-11.0) K/uL RBC 4.55 (4.30-5.90) M/uL Hgb 12.7 (12.0-15.0) g/dL Hct 39.2 L (40.0-54.0) % MCV 86 (80-98) fL MCH 28 (27-31) pg MCHC 32 (32-36) % Plt Count 255 (150-400) K/uL Jerardo Results Last 24 Hours: Microbiology 07/05/19 18:08 Gram Stain - Final Knee Fluid - Knee, Left Body Fluid Culture - Preliminary NO GROWTH AFTER 1 DAY 07/03/19 18:30 Aerobic Blood Culture - Preliminary Blood - Arm, Right NO GROWTH AFTER 3 DAYS Anaerobic Blood Culture - Preliminary NO GROWTH AFTER 3 DAYS 07/03/19 18:40 Aerobic Blood Culture - Preliminary Blood - Arm, Right NO GROWTH AFTER 3 DAYS Anaerobic Blood Culture - Preliminary NO GROWTH AFTER 3 DAYS Med Orders - Current: Current Medications Acetaminophen (Tylenol) 650 mg PO Q4H PRN PRN Reason: Pain (Mild 1-3)/fever Last Admin: 07/06/19 21:37 Dose: 650 mg Gabapentin (Neurontin) 300 mg PO QID [facility] Last Admin: 07/07/19 11:17 Dose: 300 mg Cefazolin Sodium/Dextrose 1 gm (/ Premix) 50 mls @ 100 mls/hr IV Q8H [facility] Last Admin: 07/07/19 11:18 Dose: 100 mls/hr Lactobacillus Rhamnosus (Culturelle) 1 cap PO BID [facility] Last Admin: 07/07/19 08:03 Dose: 1 cap Naproxen (Naprosyn) 500 mg PO BIDMEALS [facility] Last Admin: 07/07/19 08:03 Dose: 500 mg Discontinued Medications Gadoteridol (Prohance) 20 ml IV . DIRECTED [facility] Stop: 07/07/19 10:01 Last Admin: 07/07/19 10:31 Dose: 20 ml Sodium Chloride (Normal Saline) 1,000 mls @ 999 mls/hr IV ASDIRECTED [facility] Last Admin: 07/03/19 20:08 Dose: 999 mls/hr Sodium Chloride (Normal Saline) 1,000 mls @ 999 mls/hr IV ASDIRECTED [facility] Last Admin: 07/03/19 20:10 Dose: 999 mls/hr Ceftriaxone Sodium 1 gm/ (Sodium Chloride) 50 mls @ 100 mls/hr IV ONETIME ONE Stop: 07/03/19 19:47 Last Admin: 07/03/19 20:09 Dose: 100 mls/hr Sodium Chloride (Normal Saline) 1,000 mls @ 125 mls/hr IV ASDIRECTED [facility] Last Admin: 07/04/19 06:18 Dose: 125 mls/hr Ceftriaxone Sodium 1 gm/ (Sodium Chloride) 50 mls @ 100 mls/hr IV Q24H [facility] Sodium Chloride (Normal Saline) 1,000 mls @ 50 mls/hr IV ASDIRECTED [facility] Last Admin: 07/04/19 20:27 Dose: 50 mls/hr Ibuprofen (Motrin) 600 mg PO ONETIME ONE Stop: 07/03/19 18:32 Last Admin: 07/03/19 18:41 Dose: 600 mg Lidocaine HCl (Xylocaine-Mpf 1%) 5 ml INJECT ONETIME ONE Stop: 07/05/19 13:49 Last Admin: 07/05/19 17:29 Dose: 5 ml - Exam Quality Assessment: No: Supplemental Oxygen General: Alert, Oriented, Cooperative, No Acute Distress Lungs: Normal Respiratory Effort GI/Abdominal Exam: Soft, No Distention Extremities: No Pedal Edema, Joint Swelling (Left knee), Increased Warmth (Left knee) Psy/Mental Status: Alert, Normal Affect - Problem List Review Problem List Initiated/Reviewed/Updated: Yes - Plan Plan:: ASSESSMENT AND PLAN - Left leg cellulitis with prepatellar bursitis - cellulitis has essentially resolved with the exception of around the knee. MRI identified prepatellar bursitis. The bursa has been aspirated and the fluid sent for culture. -Orthopedic surgery consultation appreciated -Antibiotic coverage with cefazolin -Follow-up cultures -Pain control -Increase activity as tolerated Cervical radiculopathy - stable with use of gabapentin. Maintenance issues - - DVT prophylaxis - mechanical - GI prophylaxis - not indicated - Nutrition - regular Disposition - I would anticipate discharge home after the hospital stay Gustavo Regan M.D.
[2019-07-07] MEDS: Acetaminophen 325 MG Tab PO PRN (21:34)
[2019-07-08] MEDS: ceFAZolin 1 GM in Premix Bag 1 BAG IV SCH ×3 (02:51→17:57)
[2019-07-08] MEDS: Gabapentin 300 MG Cap PO SCH ×4 (06:24→21:46)
[2019-07-08] MEDS: Lactobacillus Rhamnosus GG (Probiotic) Cap PO SCH ×2 (08:05→21:46)
[2019-07-08] MEDS: Naproxen 250 MG Tab PO SCH ×2 (08:05→16:16)
--- NOTE | 2019-07-08 10:51 | PCM.PN ---
- General Info Date of Service: 07/08/19 Subjective Update: There were no acute events overnight. Knee pain and swelling are little better today but still warmth and erythema surrounding the knee joint. No fevers overnight. No nausea or shortness of breath. Culture from the left knee bursa aspiration is growing a gram-positive cocci with identification pending. Functional Status: Reports: Pain Controlled, Tolerating Diet - Review of Systems General: Denies: Fever Musculoskeletal: Reports: Leg Pain, Joint Swelling - Patient Data Vitals - Most Recent: Last Vital Signs Temp 36.8 C 07/08/19 10:33 Pulse 78 07/08/19 10:33 Resp 18 07/08/19 10:33 BP 131/84 07/08/19 10:33 Pulse Ox 98 07/08/19 10:33 Weight - Most Recent: 131.542 kg I&O - Last 24 Hours: Intake & Output 07/07/19 07/08/19 07/08/19 22:59 06:59 14:59 Intake Total 2270 1250 530 Output Total 325 1600 300 Balance 1945 -350 230 Jerardo Results Last 24 Hours: Microbiology 07/07/19 14:00 Gram Stain - Final Knee, Left Wound Culture - Preliminary 07/05/19 18:08 Gram Stain - Final Knee Fluid - Knee, Left Body Fluid Culture - Preliminary NO GROWTH AFTER 1 DAY 07/03/19 18:40 Aerobic Blood Culture - Preliminary Blood - Arm, Right NO GROWTH AFTER 4 DAYS Anaerobic Blood Culture - Preliminary NO GROWTH AFTER 4 DAYS 07/03/19 18:30 Aerobic Blood Culture - Preliminary Blood - Arm, Right NO GROWTH AFTER 4 DAYS Anaerobic Blood Culture - Preliminary NO GROWTH AFTER 4 DAYS Med Orders - Current: Current Medications Acetaminophen (Tylenol) 650 mg PO Q4H PRN PRN Reason: Pain (Mild 1-3)/fever Last Admin: 07/07/19 21:34 Dose: 650 mg Gabapentin (Neurontin) 300 mg PO QID [facility] Last Admin: 07/08/19 09:50 Dose: 300 mg Cefazolin Sodium/Dextrose 1 gm (/ Premix) 50 mls @ 100 mls/hr IV Q8H [facility] Last Admin: 07/08/19 09:50 Dose: 100 mls/hr Lactobacillus Rhamnosus (Culturelle) 1 cap PO BID [facility] Last Admin: 07/08/19 08:05 Dose: 1 cap Naproxen (Naprosyn) 500 mg PO BIDMEALS [facility] Last Admin: 07/08/19 08:05 Dose: 500 mg Discontinued Medications Gadoteridol (Prohance) 20 ml IV . DIRECTED [facility] Stop: 07/07/19 10:01 Last Admin: 07/07/19 10:31 Dose: 20 ml Sodium Chloride (Normal Saline) 1,000 mls @ 999 mls/hr IV ASDIRECTED [facility] Last Admin: 07/03/19 20:08 Dose: 999 mls/hr Sodium Chloride (Normal Saline) 1,000 mls @ 999 mls/hr IV ASDIRECTED [facility] Last Admin: 07/03/19 20:10 Dose: 999 mls/hr Ceftriaxone Sodium 1 gm/ (Sodium Chloride) 50 mls @ 100 mls/hr IV ONETIME ONE Stop: 07/03/19 19:47 Last Admin: 07/03/19 20:09 Dose: 100 mls/hr Sodium Chloride (Normal Saline) 1,000 mls @ 125 mls/hr IV ASDIRECTED [facility] Last Admin: 07/04/19 06:18 Dose: 125 mls/hr Ceftriaxone Sodium 1 gm/ (Sodium Chloride) 50 mls @ 100 mls/hr IV Q24H [facility] Sodium Chloride (Normal Saline) 1,000 mls @ 50 mls/hr IV ASDIRECTED [facility] Last Admin: 07/04/19 20:27 Dose: 50 mls/hr Ibuprofen (Motrin) 600 mg PO ONETIME ONE Stop: 07/03/19 18:32 Last Admin: 07/03/19 18:41 Dose: 600 mg Lidocaine HCl (Xylocaine-Mpf 1%) 5 ml INJECT ONETIME ONE Stop: 07/05/19 13:49 Last Admin: 07/05/19 17:29 Dose: 5 ml - Exam Quality Assessment: No: Supplemental Oxygen General: Alert, Oriented, Cooperative, No Acute Distress Lungs: Normal Respiratory Effort Cardiovascular: Regular Rate, Regular Rhythm GI/Abdominal Exam: Soft, No Distention Extremities: No Pedal Edema, Joint Swelling (left knee ), Increased Warmth ( left knee ) Psy/Mental Status: Alert, Normal Affect - Problem List Review Problem List Initiated/Reviewed/Updated: Yes - Plan Plan:: ASSESSMENT AND PLAN - Left leg cellulitis with prepatellar bursitis - cellulitis has essentially resolved with the exception of around the knee. MRI identified prepatellar bursitis and this was aspirated 07/07. Cultures growing a gram-positive cocci. Clinically improving. -Orthopedic surgery consultation appreciated -Antibiotic coverage with cefazolin -Follow-up cultures -Pain control -Increase activity as tolerated Cervical radiculopathy - stable with use of gabapentin. Maintenance issues - - DVT prophylaxis - mechanical - GI prophylaxis - not indicated - Nutrition - regular Disposition - I would anticipate discharge home after the hospital stay, hopefully tomorrow Gustavo Regan M.D.
--- NOTE | 2019-07-08 19:56 | PCM.CONS ---
H&P History of Present Illness - General Date of Service: 07/08/19 Admit Problem/Dx: Admission Diagnosis/Problem Admission Diagnosis/Problem Cellulitis Source of Information: Patient History Limitations: Reports: No Limitations - History of Present Illness Improves with: Reports: Rest Worsens with: Reports: Movement Associated Symptoms: Reports: No Other Symptoms knee Pain Score (Numeric/FACES): 3 - Related Data Allergies/Adverse Reactions: Allergies Allergy/AdvReac Type Severity Reaction Status Date / Time No Known Allergies Allergy Verified 07/03/19 18:11 Home Medications: Home Meds Gabapentin [Neurontin] 300 mg PO QID 07/03/19 [History] Naproxen 500 mg PO BID 07/03/19 [History] Past Medical History HEENT History: Reports: Impaired Vision Musculoskeletal History: Reports: Fracture, Neck Pain, Chronic, Other (See Below ) Other Musculoskeletal History: thumb Endocrine/Metabolic History: Reports: Obesity/BMI 30+ - Infectious Disease History Infectious Disease History: Reports: Chicken Pox, Mononucleosis, Mumps - Past Surgical History HEENT Surgical History: Reports: Myringotomy w Tube(s) Social & Family History - Tobacco Use Smoking Status *Q: Never Smoker - Caffeine Use Caffeine Use: Reports: Soda - Recreational Drug Use Recreational Drug Use: No H&P Review of Systems - Review of Systems: Review Of Systems: See Below Musculoskeletal: Reports: Joint Pain, Joint Swelling Exam - Exam Exam: See Below - Vital Signs Vital Signs: Last Vital Signs Temp 37.2 C 07/08/19 16:14 Pulse 87 07/08/19 16:14 Resp 18 07/08/19 16:14 BP 140/80 07/08/19 16:14 Pulse Ox 98 07/08/19 16:14 Weight: 131.542 kg - Exam Extremities: Joint Swelling, Limited Range of Motion, Redness, Other (erythema slightly improved, knee still indurated) - Patient Data Result Diagrams: 07/07/19 04:35 07/06/19 03:42 Jerardo Results Last 24 hrs: Microbiology 07/03/19 18:30 Aerobic Blood Culture - Final Blood - Arm, Right NO GROWTH AFTER 5 DAYS Anaerobic Blood Culture - Final NO GROWTH AFTER 5 DAYS 07/03/19 18:40 Aerobic Blood Culture - Final Blood - Arm, Right NO GROWTH AFTER 5 DAYS Anaerobic Blood Culture - Final NO GROWTH AFTER 5 DAYS 07/07/19 14:00 Gram Stain - Final Knee, Left Wound Culture - Preliminary 07/05/19 18:08 Gram Stain - Final Knee Fluid - Knee, Left Body Fluid Culture - Preliminary NO GROWTH AFTER 1 DAY Consult PN Assessment/Plan Procedures: Procedures EMERGENCY DEPT VISIT (06/08/16) IMMUNIZATION ADMIN (06/08/16) MRI NECK SPINE W/O DYE (01/14/17) TDAP VACCINE 7 YRS/> IM (06/08/16) (1) Cellulitis of left leg SNOMED Code(s): 406798200 Code(s): L03.116 - CELLULITIS OF LEFT LOWER LIMB Current Visit: Yes (2) Septic infrapatellar bursitis of left knee SNOMED Code(s): 67159115 Code(s): M71.162 - OTHER INFECTIVE BURSITIS, LEFT KNEE; B96.89 - OTH BACTERIAL AGENTS THE CAUSE OF DISEASES CLASSD ELSWHR Current Visit: Yes Problem List Initiated/Reviewed/Updated: Yes Plan: Has some Gm pos cocci on aspirate from bursa, hopefully can identify and tailor abx, will re-examine in am, if still red and swollen over bursa can aspirate again or make small incision for drainage.
[2019-07-08] MEDS: Acetaminophen 325 MG Tab PO PRN (21:46)
[2019-07-09] MEDS: ceFAZolin 1 GM in Premix Bag 1 BAG IV SCH ×3 (02:58→17:09)
[2019-07-09] MEDS: Gabapentin 300 MG Cap PO SCH ×4 (06:13→21:50)
[2019-07-09] MEDS: Naproxen 250 MG Tab PO SCH ×2 (09:08→17:09)
[2019-07-09] MEDS: Lactobacillus Rhamnosus GG (Probiotic) Cap PO SCH ×2 (09:10→21:50)
--- NOTE | 2019-07-09 13:01 | PCM.PN ---
- General Info Date of Service: 07/09/19 Subjective Update: No acute events overnight. Pain is a little better. Swelling and redness are little better laterally but still swollen and warm medially. No fevers. Bursa culture did grow out staph aureus which was pansensitive. Functional Status: Reports: Pain Controlled - Review of Systems General: Denies: Fever - Patient Data Vitals - Most Recent: Last Vital Signs Temp 36.7 C 07/09/19 11:14 Pulse 83 07/09/19 11:14 Resp 18 07/09/19 11:14 BP 127/79 07/09/19 11:14 Pulse Ox 95 07/09/19 11:14 Weight - Most Recent: 131.542 kg I&O - Last 24 Hours: Intake & Output 07/08/19 07/09/19 07/09/19 22:59 06:59 14:59 Intake Total 50 50 50 Output Total 1700 675 700 Balance -0397 -430 -435 Jerardo Results Last 24 Hours: Microbiology 07/05/19 18:08 Gram Stain - Final Knee Fluid - Knee, Left Body Fluid Culture - Final NO GROWTH AFTER 3 DAYS 07/07/19 14:00 Gram Stain - Final Knee, Left Wound Culture - Final Staphylococcus Aureus 07/03/19 18:30 Aerobic Blood Culture - Final Blood - Arm, Right NO GROWTH AFTER 5 DAYS Anaerobic Blood Culture - Final NO GROWTH AFTER 5 DAYS 07/03/19 18:40 Aerobic Blood Culture - Final Blood - Arm, Right NO GROWTH AFTER 5 DAYS Anaerobic Blood Culture - Final NO GROWTH AFTER 5 DAYS Med Orders - Current: Current Medications Acetaminophen (Tylenol) 650 mg PO Q4H PRN PRN Reason: Pain (Mild 1-3)/fever Last Admin: 07/08/19 21:46 Dose: 650 mg Gabapentin (Neurontin) 300 mg PO QID [facility] Last Admin: 07/09/19 09:08 Dose: 300 mg Cefazolin Sodium/Dextrose 1 gm (/ Premix) 50 mls @ 100 mls/hr IV Q8H [facility] Last Admin: 07/09/19 09:09 Dose: 100 mls/hr Lactobacillus Rhamnosus (Culturelle) 1 cap PO BID [facility] Last Admin: 07/09/19 09:10 Dose: 1 cap Naproxen (Naprosyn) 500 mg PO BIDMEALS [facility] Last Admin: 07/09/19 09:08 Dose: 500 mg Discontinued Medications Gadoteridol (Prohance) 20 ml IV . DIRECTED [facility] Stop: 07/07/19 10:01 Last Admin: 07/07/19 10:31 Dose: 20 ml Sodium Chloride (Normal Saline) 1,000 mls @ 999 mls/hr IV ASDIRECTED [facility] Last Admin: 07/03/19 20:08 Dose: 999 mls/hr Sodium Chloride (Normal Saline) 1,000 mls @ 999 mls/hr IV ASDIRECTED [facility] Last Admin: 07/03/19 20:10 Dose: 999 mls/hr Ceftriaxone Sodium 1 gm/ (Sodium Chloride) 50 mls @ 100 mls/hr IV ONETIME ONE Stop: 07/03/19 19:47 Last Admin: 07/03/19 20:09 Dose: 100 mls/hr Sodium Chloride (Normal Saline) 1,000 mls @ 125 mls/hr IV ASDIRECTED [facility] Last Admin: 07/04/19 06:18 Dose: 125 mls/hr Ceftriaxone Sodium 1 gm/ (Sodium Chloride) 50 mls @ 100 mls/hr IV Q24H [facility] Sodium Chloride (Normal Saline) 1,000 mls @ 50 mls/hr IV ASDIRECTED [facility] Last Admin: 07/04/19 20:27 Dose: 50 mls/hr Ibuprofen (Motrin) 600 mg PO ONETIME ONE Stop: 07/03/19 18:32 Last Admin: 07/03/19 18:41 Dose: 600 mg Lidocaine HCl (Xylocaine-Mpf 1%) 5 ml INJECT ONETIME ONE Stop: 07/05/19 13:49 Last Admin: 07/05/19 17:29 Dose: 5 ml - Exam Quality Assessment: No: Supplemental Oxygen General: Alert, Oriented, Cooperative, No Acute Distress Lungs: Normal Respiratory Effort GI/Abdominal Exam: Soft, No Distention Extremities: No Pedal Edema, Increased Warmth (Left knee medially) - Problem List Review Problem List Initiated/Reviewed/Updated: Yes - Plan Plan:: ASSESSMENT AND PLAN - Left leg cellulitis with septic prepatellar bursitis - cellulitis has essentially resolved with the exception of around the knee. MRI identified prepatellar bursitis and this was aspirated 07/07. Cultures growing pansensitive staph aureus. Further improvement but still significant swelling and redness along the medial portion of the knee. -Orthopedic surgery consultation appreciated, repeat aspiration versus incision and drainage is being considered -Antibiotic coverage with cefazolin -Follow-up cultures -Pain control -Increase activity as tolerated Cervical radiculopathy - stable with use of gabapentin. Maintenance issues - - DVT prophylaxis - mechanical - GI prophylaxis - not indicated - Nutrition - regular Disposition - I would anticipate discharge home after the hospital stay, hopefully tomorrow Gustavo Regan M.D.
--- NOTE | 2019-07-09 15:42 | PCM.CONSN ---
- General Info Date of Service: 07/09/19 Functional Status: Reports: Pain Controlled, Tolerating Diet - Review of Systems General: Reports: No Symptoms Musculoskeletal: Reports: Joint Pain, Joint Swelling, Other (erythema) Neurological: Reports: No Symptoms - Patient Data Vitals - Most Recent: Last Vital Signs Temp 36.8 C 07/09/19 15:29 Pulse 85 07/09/19 15:29 Resp 16 07/09/19 15:29 BP 136/77 07/09/19 15:29 Pulse Ox 95 07/09/19 15:29 Weight - Most Recent: 131.542 kg I&O - Last 24 Hours: Intake & Output 07/09/19 07/09/19 07/09/19 06:59 14:59 22:59 Intake Total 50 1350 Output Total 675 700 Balance -625 650 Jerardo Results Last 24 Hours: Microbiology 07/05/19 18:08 Gram Stain - Final Knee Fluid - Knee, Left Body Fluid Culture - Final NO GROWTH AFTER 3 DAYS 07/07/19 14:00 Gram Stain - Final Knee, Left Wound Culture - Final Staphylococcus Aureus 07/03/19 18:30 Aerobic Blood Culture - Final Blood - Arm, Right NO GROWTH AFTER 5 DAYS Anaerobic Blood Culture - Final NO GROWTH AFTER 5 DAYS 07/03/19 18:40 Aerobic Blood Culture - Final Blood - Arm, Right NO GROWTH AFTER 5 DAYS Anaerobic Blood Culture - Final NO GROWTH AFTER 5 DAYS Med Orders - Current: Current Medications Acetaminophen (Tylenol) 650 mg PO Q4H PRN PRN Reason: Pain (Mild 1-3)/fever Last Admin: 07/08/19 21:46 Dose: 650 mg Gabapentin (Neurontin) 300 mg PO QID [facility] Last Admin: 07/09/19 09:08 Dose: 300 mg Cefazolin Sodium/Dextrose 1 gm (/ Premix) 50 mls @ 100 mls/hr IV Q8H [facility] Last Admin: 07/09/19 09:09 Dose: 100 mls/hr Lactobacillus Rhamnosus (Culturelle) 1 cap PO BID [facility] Last Admin: 07/09/19 09:10 Dose: 1 cap Naproxen (Naprosyn) 500 mg PO BIDMEALS [facility] Last Admin: 07/09/19 09:08 Dose: 500 mg Discontinued Medications Gadoteridol (Prohance) 20 ml IV . DIRECTED [facility] Stop: 07/07/19 10:01 Last Admin: 07/07/19 10:31 Dose: 20 ml Sodium Chloride (Normal Saline) 1,000 mls @ 999 mls/hr IV ASDIRECTED [facility] Last Admin: 07/03/19 20:08 Dose: 999 mls/hr Sodium Chloride (Normal Saline) 1,000 mls @ 999 mls/hr IV ASDIRECTED [facility] Last Admin: 07/03/19 20:10 Dose: 999 mls/hr Ceftriaxone Sodium 1 gm/ (Sodium Chloride) 50 mls @ 100 mls/hr IV ONETIME ONE Stop: 07/03/19 19:47 Last Admin: 07/03/19 20:09 Dose: 100 mls/hr Sodium Chloride (Normal Saline) 1,000 mls @ 125 mls/hr IV ASDIRECTED [facility] Last Admin: 07/04/19 06:18 Dose: 125 mls/hr Ceftriaxone Sodium 1 gm/ (Sodium Chloride) 50 mls @ 100 mls/hr IV Q24H [facility] Sodium Chloride (Normal Saline) 1,000 mls @ 50 mls/hr IV ASDIRECTED [facility] Last Admin: 07/04/19 20:27 Dose: 50 mls/hr Ibuprofen (Motrin) 600 mg PO ONETIME ONE Stop: 07/03/19 18:32 Last Admin: 07/03/19 18:41 Dose: 600 mg Lidocaine HCl (Xylocaine-Mpf 1%) 5 ml INJECT ONETIME ONE Stop: 07/05/19 13:49 Last Admin: 07/05/19 17:29 Dose: 5 ml - Exam Extremities: Joint Swelling, Limited Range of Motion, Increased Warmth, Other ( erythema centered around prepatellar bursa) Consult PN Assessment/Plan Procedures: Procedures EMERGENCY DEPT VISIT (06/08/16) IMMUNIZATION ADMIN (06/08/16) MRI NECK SPINE W/O DYE (01/14/17) TDAP VACCINE 7 YRS/> IM (06/08/16) (1) Cellulitis of left leg SNOMED Code(s): 992534742 Code(s): L03.116 - CELLULITIS OF LEFT LOWER LIMB Current Visit: Yes (2) Septic infrapatellar bursitis of left knee SNOMED Code(s): 89406408 Code(s): M71.162 - OTHER INFECTIVE BURSITIS, LEFT KNEE; B96.89 - OTH BACTERIAL AGENTS THE CAUSE OF DISEASES CLASSD [id number] Current Visit: Yes Problem List Initiated/Reviewed/Updated: Yes Plan: Culture and sensitivities show S. Aureus without any significant resistance, bursa aspirated again with persistent purulent fluid, flushed with dilute betadine solution, hopefully can switch to po antibiotics tomorrow.
[2019-07-09] MEDS: Acetaminophen 325 MG Tab PO PRN (21:49)
[2019-07-10] MEDS: ceFAZolin 1 GM in Premix Bag 1 BAG IV SCH ×2 (02:48→09:19)
[2019-07-10] MEDS: Gabapentin 300 MG Cap PO SCH ×2 (06:02→09:20)
[2019-07-10] MEDS: Lactobacillus Rhamnosus GG (Probiotic) Cap PO SCH (09:20)
[2019-07-10] MEDS: Naproxen 250 MG Tab PO SCH (09:20)
[2019-07-10 10:26] VITALS: BP 137/93; PULSE 84
--- NOTE | 2019-07-10 13:19 | PCM.CONSN ---
- General Info Date of Service: 07/10/19 Functional Status: Reports: Pain Controlled, Tolerating Diet, Ambulating, Urinating - Review of Systems General: Reports: No Symptoms Musculoskeletal: Reports: Leg Pain, Joint Swelling Skin: Reports: No Symptoms Neurological: Reports: No Symptoms Psychiatric: Reports: No Symptoms - Patient Data Vitals - Most Recent: Last Vital Signs Temp 37.0 C 07/10/19 10:25 Pulse 84 07/10/19 10:25 Resp 18 07/10/19 10:25 BP 137/93 H 07/10/19 10:25 Pulse Ox 98 07/10/19 10:25 Weight - Most Recent: 131.542 kg I&O - Last 24 Hours: Intake & Output 07/09/19 07/10/19 07/10/19 22:59 06:59 14:59 Intake Total 950 300 Output Total 750 525 100 Balance -750 425 200 Med Orders - Current: Current Medications Acetaminophen (Tylenol) 650 mg PO Q4H PRN PRN Reason: Pain (Mild 1-3)/fever Last Admin: 07/09/19 21:49 Dose: 650 mg Gabapentin (Neurontin) 300 mg PO QID [facility] Last Admin: 07/10/19 09:20 Dose: 300 mg Cefazolin Sodium/Dextrose 1 gm (/ Premix) 50 mls @ 100 mls/hr IV Q8H [facility] Last Admin: 07/10/19 09:19 Dose: 100 mls/hr Lactobacillus Rhamnosus (Culturelle) 1 cap PO BID [facility] Last Admin: 07/10/19 09:20 Dose: 1 cap Naproxen (Naprosyn) 500 mg PO BIDMEALS [facility] Last Admin: 07/10/19 09:20 Dose: 500 mg Discontinued Medications Gadoteridol (Prohance) 20 ml IV . DIRECTED [facility] Stop: 07/07/19 10:01 Last Admin: 07/07/19 10:31 Dose: 20 ml Sodium Chloride (Normal Saline) 1,000 mls @ 999 mls/hr IV ASDIRECTED [facility] Last Admin: 07/03/19 20:08 Dose: 999 mls/hr Sodium Chloride (Normal Saline) 1,000 mls @ 999 mls/hr IV ASDIRECTED [facility] Last Admin: 07/03/19 20:10 Dose: 999 mls/hr Ceftriaxone Sodium 1 gm/ (Sodium Chloride) 50 mls @ 100 mls/hr IV ONETIME ONE Stop: 07/03/19 19:47 Last Admin: 07/03/19 20:09 Dose: 100 mls/hr Sodium Chloride (Normal Saline) 1,000 mls @ 125 mls/hr IV ASDIRECTED [facility] Last Admin: 07/04/19 06:18 Dose: 125 mls/hr Ceftriaxone Sodium 1 gm/ (Sodium Chloride) 50 mls @ 100 mls/hr IV Q24H [facility] Sodium Chloride (Normal Saline) 1,000 mls @ 50 mls/hr IV ASDIRECTED [facility] Last Admin: 07/04/19 20:27 Dose: 50 mls/hr Ibuprofen (Motrin) 600 mg PO ONETIME ONE Stop: 07/03/19 18:32 Last Admin: 07/03/19 18:41 Dose: 600 mg Lidocaine HCl (Xylocaine-Mpf 1%) 5 ml INJECT ONETIME ONE Stop: 07/05/19 13:49 Last Admin: 07/05/19 17:29 Dose: 5 ml - Exam Extremities: Joint Swelling, Limited Range of Motion, Increased Warmth, Redness (erythema, swelling, and activity tolerance continue to improve slowy), Other Consult PN Assessment/Plan Procedures: Procedures EMERGENCY DEPT VISIT (06/08/16) IMMUNIZATION ADMIN (06/08/16) MRI NECK SPINE W/O DYE (01/14/17) TDAP VACCINE 7 YRS/> IM (06/08/16) (1) Cellulitis of left leg SNOMED Code(s): 673892825 Code(s): L03.116 - CELLULITIS OF LEFT LOWER LIMB Current Visit: Yes (2) Septic infrapatellar bursitis of left knee SNOMED Code(s): 43368650 Code(s): M71.162 - OTHER INFECTIVE BURSITIS, LEFT KNEE; B96.89 - OTH BACTERIAL AGENTS THE CAUSE OF DISEASES CLASSD [id number] Current Visit: Yes Problem List Initiated/Reviewed/Updated: Yes Plan: Continued slow improvement, erythema centered over bursa but surrounding area still a little indurated, ROM improved. I would be comfortable with him going home on oral antibiotics and following him as an outpatient for the bursitis. Can aspirated again in clinic if needed but should continue to improve. Would hold off from returning to work this week and return with restrictions next week. Work release form filled out for him.
--- NOTE | 2019-07-10 14:16 | PCM.DCSUM1 ---
Discharge Summary - Hospital Course Brief History: Mr. Lincoln is a 54-year-old gentleman who was admitted through the emergency department with pain and erythema of his left leg secondary to cellulitis and infected prepatellar bursitis. - Discharge Data Discharge Date: 07/10/19 Discharge Disposition: Home, Self-Care 01 Condition: Fair - Referral to Home Health Primary Care Physician: Zuleika Chambers MD - Discharge Diagnosis/Problem(s) (1) Cellulitis of left leg SNOMED Code(s): 541395905 ICD Code: L03.116 - CELLULITIS OF LEFT LOWER LIMB Status: Acute Current Visit: Yes (2) Septic infrapatellar bursitis of left knee SNOMED Code(s): 45266806 ICD Code: M71.162 - OTHER INFECTIVE BURSITIS, LEFT KNEE; B96.89 - OTH BACTERIAL AGENTS THE CAUSE OF DISEASES CLASSD ELSWHR Status: Acute Current Visit: Yes - Patient Summary/Data Consults: Consultations 07/05/19 09:46 Consult to Physician [CONS] Routine Consulting Provider: Roman Phelan Courtesy Call Completed to Consulting Physician: Yes Reason for Consult: septic left knee? Person Notified: [employer]NER [employer]IMAL Date Notified: 07/05/19 Hospital Course: Mr. Lincoln is a 54-year-old gentleman who was admitted through the emergency department with pain and erythema of his left leg. On evaluation in the emergency department was found to have elevated white blood cell count and evidence of cellulitis involving his left leg. He was admitted to the hospital after blood cultures were obtained and started on IV antibiotic therapy with cefazolin. Initially there was good improvement in the cellulitis but he had persistent residual erythema and swelling around the left knee. He was seen and evaluated by Dr. Phelan for orthopedic consult in the knee joint was aspirated. There was no evidence of underlying infection in the knee joints. Because of persistent erythema and a few days later the prepatellar bursa was aspirated, with a result of purulent-appearing fluid which later grew out staph aureus, methicillin sensitive. A second aspiration of bursa was performed and after that he slowly improved to the point where he had no residual cellulitis or evidence of significant infection. There was some ongoing swelling in the left lower extremity that should improve over the next few days. He will be transitioned to oral antibiotic therapy with cephalexin for an additional 7 days. Activity will be as tolerated, he should keep the leg elevated as much as possible. He will be off of work until July 17. Follow-up appointments have been scheduled with Dr. Phelan as well as his primary care provider. He will resume his usual diet. He was instructed to return to the emergency department immediately if he notes increased erythema pain or swelling in the leg. - Patient Instructions Diet: Usual Diet as Tolerated Activity: Elevate Extremity (L leg) Other/Special Instructions: Off work until Jul.17 - Discharge Plan *PRESCRIPTION DRUG MONITORING PROGRAM REVIEWED*: Not Applicable *COPY OF PRESCRIPTION DRUG MONITORING REPORT IN PATIENT LYNSEY: Not Applicable Prescriptions/Med Rec: Cephalexin [Keflex] 500 mg PO Q8H #21 capsule Lactobacillus Rhamnosus GG [Culturelle] 1 cap PO BID #60 cap Home Medications: Home Meds Gabapentin [Neurontin] 300 mg PO QID 07/03/19 [History] Naproxen 500 mg PO BID 07/03/19 [History] Cephalexin [Keflex] 500 mg PO Q8H #21 capsule 07/10/19 [Rx] Lactobacillus Rhamnosus GG [Culturelle] 1 cap PO BID #60 cap 07/10/19 [Rx] Referrals: Zuleika Chambers MD [Primary Care Provider] - 07/18/19 3:30 pm (Please arrive 15 minutes early to register for your appointment. This appointment was scheduled prior to hospitalization.) Roman Phelan MD [Physician] - 07/20/19 2:00 pm - Discharge Summary/Plan Comment DC Time >30 min.: No - Patient Data Vitals - Most Recent: Last Vital Signs Temp 98.6 F 07/10/19 10:25 Pulse 84 07/10/19 10:25 Resp 18 07/10/19 10:25 BP 137/93 H 07/10/19 10:25 Pulse Ox 98 07/10/19 10:25 Weight - Most Recent: 290 lb I&O - Last 24 hours: Intake & Output 07/09/19 07/10/19 07/10/19 22:59 06:59 14:59 Intake Total 950 620 Output Total 750 525 100 Balance -750 425 520 Med Orders - Current: Current Medications Acetaminophen (Tylenol) 650 mg PO Q4H PRN PRN Reason: Pain (Mild 1-3)/fever Last Admin: 11/24/19 21:49 Dose: 650 mg Gabapentin (Neurontin) 300 mg PO QID [facility] Last Admin: 07/10/19 09:20 Dose: 300 mg Cefazolin Sodium/Dextrose 1 gm (/ Premix) 50 mls @ 100 mls/hr IV Q8H [facility] Last Admin: 07/10/19 09:19 Dose: 100 mls/hr Lactobacillus Rhamnosus (Culturelle) 1 cap PO BID [facility] Last Admin: 07/10/19 09:20 Dose: 1 cap Naproxen (Naprosyn) 500 mg PO BIDMEALS [facility] Last Admin: 07/10/19 09:20 Dose: 500 mg Discontinued Medications Gadoteridol (Prohance) 20 ml IV . DIRECTED [facility] Stop: 07/07/19 10:01 Last Admin: 07/07/19 10:31 Dose: 20 ml Sodium Chloride (Normal Saline) 1,000 mls @ 999 mls/hr IV ASDIRECTED [facility] Last Admin: 07/03/19 20:08 Dose: 999 mls/hr Sodium Chloride (Normal Saline) 1,000 mls @ 999 mls/hr IV ASDIRECTED [facility] Last Admin: 07/03/19 20:10 Dose: 999 mls/hr Ceftriaxone Sodium 1 gm/ (Sodium Chloride) 50 mls @ 100 mls/hr IV ONETIME ONE Stop: 07/03/19 19:47 Last Admin: 07/03/19 20:09 Dose: 100 mls/hr Sodium Chloride (Normal Saline) 1,000 mls @ 125 mls/hr IV ASDIRECTED [facility] Last Admin: 07/04/19 06:18 Dose: 125 mls/hr Ceftriaxone Sodium 1 gm/ (Sodium Chloride) 50 mls @ 100 mls/hr IV Q24H [facility] Sodium Chloride (Normal Saline) 1,000 mls @ 50 mls/hr IV ASDIRECTED [facility] Last Admin: 07/04/19 20:27 Dose: 50 mls/hr Ibuprofen (Motrin) 600 mg PO ONETIME ONE Stop: 07/03/19 18:32 Last Admin: 07/03/19 18:41 Dose: 600 mg Lidocaine HCl (Xylocaine-Mpf 1%) 5 ml INJECT ONETIME ONE Stop: 07/05/19 13:49 Last Admin: 07/05/19 17:29 Dose: 5 ml - Exam General: Reports: Alert, Oriented, Cooperative, No Acute Distress Extremities: Pedal Edema, Redness (Small amount of residual erythema medial aspect at the right knee.)
== END 2019-07-10 15:00 | disposition home or self-care (01) | DRG 603 ==
LOC: JP.ED 17:46 → JP.ICU 21:00 → JP.MS 07-07 14:30
PROVIDERS: ADMIT Family Medicine; ATTEND Hospitalist
DX: L03.116 Cellulitis of left lower limb (principal); Z68.41 Body mass index [BMI] 40.0-44.9, adult; M71.162 Other infective bursitis, left knee; B96.89 Other specified bacterial agents as the cause of diseases classified elsewhere; H54.7 Unspecified visual loss; M54.12 Radiculopathy, cervical region; G89.29 Other chronic pain; M54.2 Cervicalgia; E66.9 Obesity, unspecified; Z79.899 Other long term (current) drug therapy
CPT/HCPCS: 36415; 73723-LT; 80048; 80053; 83605; 85025; 85027; 87040; 87070; 87077; 87186; 87205; 89050; 93971-LT; 96361; 96365; 99284-25; A9270-GY; A9579; J0690; J0696; J2001; J7030; J7050

== ENCOUNTER 2019-08-01 19:03 | Emergency (ER) | payer MEDICAID, OTHER ==
[2019-08-01 19:43] VITALS: BP 129/87; PULSE 77
--- NOTE | 2019-08-01 20:12 | EDM.PDOC ---
ED HPI GENERAL MEDICAL PROBLEM - General Chief Complaint: Lower Extremity Injury/Pain Stated Complaint: TWISTED ANKLE AT WORK Time Seen by Provider: 08/01/19 19:45 Source of Information: Reports: Patient History Limitations: Reports: No Limitations - History of Present Illness INITIAL COMMENTS - FREE TEXT/NARRATIVE: 54-year-old male presents to concerns of right ankle pain. He was unloading a truck with lumbar on it today at work, reports that he lost his footing and suffered from an inversion type injury with the right foot. He had some diffuse pain around the joint since this time. Pain is moderate in severity, is somewhat more posterior in location. It is worse with ambulation, however he is able to bear weight on the extremity. He has tried some naproxen for pain. His sensation and strength of the foot feel intact. Incidentally, he just finished antibiotics for left leg cellulitis. There is still some mild erythema over the top of his knee, but he feels like this is stable. Right Ankle Pain Score (Numeric/FACES): 5 - Related Data Allergies Allergy/AdvReac Type Severity Reaction Status Date / Time No Known Allergies Allergy Verified 08/01/19 19:24 Home Meds: Home Meds Gabapentin [Neurontin] 300 mg PO QID 07/03/19 [History] Naproxen 500 mg PO BID 07/03/19 [History] Lactobacillus Rhamnosus GG [Culturelle] 1 cap PO BID #60 cap 07/10/19 [Rx] Past Medical History HEENT History: Reports: Impaired Vision Musculoskeletal History: Reports: Fracture, Neck Pain, Chronic, Other (See Below ) Other Musculoskeletal History: thumb. s/p septic bursitis L knee 07/07/19 Endocrine/Metabolic History: Reports: Obesity/BMI 30+ Dermatologic History: Reports: Cellulitis - Infectious Disease History Infectious Disease History: Reports: Chicken Pox, Mononucleosis, Mumps - Past Surgical History HEENT Surgical History: Reports: Myringotomy w Tube(s) Social & Family History - Tobacco Use Smoking Status *Q: Never Smoker - Caffeine Use Caffeine Use: Reports: Soda - Recreational Drug Use Recreational Drug Use: No Review of Systems - Review of Systems Review Of Systems: See Below Constitutional: Reports: No Symptoms Eyes: Reports: No Symptoms Ears: Reports: No Symptoms Nose: Reports: No Symptoms Mouth/Throat: Reports: No Symptoms Respiratory: Reports: No Symptoms Cardiovascular: Reports: No Symptoms GI/Abdominal: Reports: No Symptoms Genitourinary: Reports: No Symptoms Musculoskeletal: Reports: Other (ankle pain) Skin: Reports: No Symptoms Neurological: Reports: No Symptoms Psychiatric: Reports: No Symptoms ED EXAM, GENERAL - Physical Exam Exam: See Below Exam Limited By: No Limitations General Appearance: Alert, No Apparent Distress Ears: Normal External Exam Nose: Normal Inspection Throat/Mouth: Normal Inspection Head: Atraumatic, Normocephalic Neck: Normal Inspection Respiratory/Chest: No Respiratory Distress Cardiovascular: Regular Rate, Rhythm GI/Abdominal: Soft, No Distention Back Exam: Normal Inspection Extremities: Other (diffuse swelling of the right ankle. Minimal tenderness. Sensation in the foot is intact. Plantarflexion and dorsiflexion strength is 5/5 ) Neurological: Alert, Oriented Psychiatric: Normal Affect, Normal Mood Skin Exam: Warm, Dry Course - Vital Signs Last Recorded V/S: Last Vital Signs Temp 36.2 C 08/01/19 19:28 Pulse 77 08/01/19 19:28 Resp 16 08/01/19 19:28 BP 129/87 08/01/19 19:28 Pulse Ox 96 08/01/19 19:28 - Orders/Labs/Meds Orders: Active Orders 24 hr Category Date Time Status Ankle Min 3V Rt [CR] Stat Exams 08/01/19 19:44 Taken - Re-Assessments/Exams Free Text/Narrative Re-Assessment/Exam: 54-year-old presents with right ankle pain after inversion type injury. Is able to bear weight on the extremity. No point tenderness or deformity. No fracture on x-ray. Consistent with sprain. Discussed symptomatic cares including NSAIDs, ice, compression, and ambulating as tolerated. 08/01/19 20:10 Departure - Departure Time of Disposition: 20:11 Disposition: Home, Self-Care 01 Clinical Impression: Ankle sprain Qualifiers: Encounter type: initial encounter Involved ligament of ankle: unspecified ligament Laterality: right Qualified Code(s): S93.401A - Sprain of unspecified ligament of right ankle, initial encounter - Discharge Information *PRESCRIPTION DRUG MONITORING PROGRAM REVIEWED*: No *COPY OF PRESCRIPTION DRUG MONITORING REPORT IN PATIENT LYNSEY: No Instructions: Ankle Sprain, Taxt-ud-Ovoc, Ankle Exercises-SportsMed Referrals: Zuleika Chambers MD [Primary Care Provider] - Additional Instructions: You are being diagnosed with a sprained ankle. As discussed please use over-the- counter pain medications, ice the joint, and elevated it when laying in bed tonight to minimize swelling. You may walk on the extremity as tolerated. Please follow up with primary doctor if your symptoms failed to improve over the coming days. Sepsis Event Note - Evaluation Sepsis Screening Result: No Definite Risk - Focused Exam Vital Signs: Vital Signs Temp Pulse Resp BP Pulse Ox 08/01/19 19:28 36.2 C 77 16 129/87 96 Date Exam was Performed: 08/01/19 Time Exam was Performed: 20:07 - My Orders Last 24 Hours: My Active Orders 08/01/19 19:44 Ankle Min 3V Rt [CR] Stat - Assessment/Plan Last 24 Hours: My Active Orders 08/01/19 19:44 Ankle Min 3V Rt [CR] Stat
--- NOTE | 2019-08-01 20:42 | CRLCR ---
Indication: Fall, pain with ambulation. Technique: Right ankle 3 views. Comparison: None Findings: Bones: Well corticated ossifications adjacent to the medial malleolus. Well-formed plantar heel spur. Joint spaces: No dislocation. Soft tissues: Prominent lateral soft tissue swelling. Impression: Prominent lateral soft tissue swelling without evidence of fracture or dislocation. Dictated by Preston Hare MD @ Aug 01 2019 8:30PM Signed by Dr. Preston Hare @ Aug 01 2019 8:41PM
== END 2019-08-01 20:48 | disposition home or self-care (01) ==
LOC: JP.ED 19:03
DX: S93.401A Sprain of unspecified ligament of right ankle, initial encounter (principal)
CPT/HCPCS: 73610-RT; 99283-25

== ENCOUNTER 2019-08-28 07:27 | Day surgery (SDC) | payer MEDICAID ==
[2019-08-28] MEDS ORDERED: Dextrose 5%-Lactated Ringers 1,000 ML IV SCH (08:30)
[2019-08-28] MEDS ORDERED: Propofol 200 MG/20 ML SDV ONE (09:05)
[2019-08-28] MEDS ORDERED: fentaNYL 100 MCG/2 ML SDV ONE (09:06)
[2019-08-28] MEDS ORDERED: Midazolam 1 MG/ML 2 ML SDV ONE (09:06)
[2019-08-28 10:33] VITALS: BP 120/81; PULSE 70
--- NOTE | 2019-08-29 21:38 | OR ---
DATE OF PROCEDURE: 08/28/2019 SURGEON: uJstin Delgado MD PREOPERATIVE DIAGNOSIS: Indications for screening colonoscopy. POSTOPERATIVE DIAGNOSIS: Normal screening colonoscopy. OPERATIVE PROCEDURE: Screening colonoscopy. ANESTHESIA: IV sedation. INDICATION FOR PROCEDURE: This is a 54-year-old male presenting for initial screening colonoscopy. He has no personal or family history of colonic neoplasia. Plan is to proceed with a colonoscopy with biopsies and polypectomy as indicated. Potential risks including bleeding and perforation were discussed, and the patient wishes to proceed. DETAILS OF PROCEDURE: The patient was taken to the operating room and placed in a left lateral decubitus position. IV sedation was administered, after which the initial digital rectal exam was performed and was unremarkable. Colonoscope was then passed into the rectum with retroflexion revealing hemorrhoidal columns. The scope was then passed eventually to the cecum. The prep was fairly good with only a small amount of liquid in terms of solid stool being present. Vast majority of the mucosal surfaces was well visualized, to that level there were no diverticula and no areas of polyps or other signs of neoplasia and no new areas of colitis. The scope was then withdrawn. The above findings reconfirmed, and the procedure then concluded. The patient was taken to the recovery room in satisfactory condition. Given the lack of personal and family history of colonic neoplasia, the next colonoscopy should be scheduled in 10 years. Justin Delgado MD /[id number]
== END 2019-08-28 10:40 | disposition home or self-care (01) ==
LOC: JP.SDS 07:27
PROVIDERS: ATTEND Surgery
DX: Z12.11 Encounter for screening for malignant neoplasm of colon (principal); K64.9 Unspecified hemorrhoids
CPT/HCPCS: 45378; J2250; J2704; J3010

== ENCOUNTER 2020-09-15 20:28 | Emergency (ER) | payer OTHER, MEDICAID ==
[2020-09-15 20:43] VITALS: BP 121/81; PULSE 100
[2020-09-15] MEDS ORDERED: Sodium Chloride 0.9% 10 ML Syringe FLUSH ONE (20:56)
[2020-09-15] MEDS ORDERED: Sodium Chloride 0.9% 10 ML Syringe FLUSH PRN (20:59)
[2020-09-15] MEDS ORDERED: Iopamidol 612 MG/ML 150 ML Bottle IV SCH (21:00)
--- NOTE | 2020-09-15 21:39 | CRLCT ---
INDICATION: Fell on ice 2 days ago. Hematuria now TECHNIQUE: CT of abdomen and pelvis performed after IV injection of 150 mL of Isovue-350. FINDINGS: Moderate degenerative disc disease and interspace narrowing L3 and L4 interspaces. Moderate degenerate hypertrophic changes elsewhere in the spine. Moderate sized calcified stone in the gallbladder measures 2.2 cm. Moderate diffuse wall thickening involving the urinary bladder is with the wall of the urinary bladder measuring up to 1.1 cm in thickness. Mild to moderate inflammatory or edematous stranding surrounding the urinary bladder. Findings could be related to an underlying acute cystitis. Other mucosal disease such as neoplasm can cause such wall thickening. Clinical and laboratory correlation recommended if desired correlation to cystoscopy. Spleen is mildly enlarged measuring 13-14 cm in craniocaudad length. Moderate diffuse fatty infiltration of the liver. Trace amount of pericardial fluid. Small amount of fluid along the a lateral and posterior right hepatic lobe could be posttraumatic. Increased number of small to upper limits of normal lymph nodes in the abdominal retroperitoneum could be inflammatory or reactive. Similar increased number of small to mildly prominent lymph nodes in the pelvis bilateral along the iliac lymph node chains have prominent fatty armaan and likely are reactive also. Mild prostatic enlargement. The appendix is normal. Remainder negative. IMPRESSION: 1. Moderate diffuse low-density wall thickening involving the urinary bladder with surrounding mild to moderate edematous or inflammatory stranding. Findings suggest acute cystitis. Other mucosal disease such as neoplasm could cause such wall thickening. Clinical correlation recommended. 2. Small amount of fluid along the lateral and posterior aspect of the right hepatic lobe could be posttraumatic. 3. Cholelithiasis. 4. Mild lymph node prominence in the abdominal retroperitoneum and pelvis bilaterally with the lymph nodes ranging from small to mildly prominent and predominantly having fatty armaan suggesting they are inflammatory reactive in nature. 5. Spleen mildly enlarged. 6. Mild prostatic enlargement. Please note that all CT scans at this facility use dose modulation, iterative reconstruction, and/or weight-based dosing when appropriate to reduce radiation dose to as low as reasonably achievable. Dictated by Justin Fam MD @ Sep 15 2020 9:38PM Signed by Dr. Justin Fam @ Sep 15 2020 9:38PM
--- NOTE | 2020-09-15 21:51 | EDM.PDOC ---
ED HPI GENERAL MEDICAL PROBLEM - General Chief Complaint: Genitourinary Problem Stated Complaint: FELL, BLOOD IN URINE Time Seen by Provider: 09/15/20 20:41 Source of Information: Reports: Patient History Limitations: Reports: No Limitations - History of Present Illness INITIAL COMMENTS - FREE TEXT/NARRATIVE: Sher is a 55-year-old male presenting to the ED with concerns of acute onset of hematuria. The patient reports he was playing broom ball with his kids on the ice and fell backward landing on his butt and back several days ago. He denied any significant injury at the time but did feel more stiff the next day. Today he started passing blood in his urine including clots which became a little bit painful. He denies any urgency or burning with urination. He is concerned that the fall has caused some kind of internal injury prompting him to come in for evaluation. He denies any fever, chills, nausea or vomiting, diarrhea or constipation. He denies any numbness or tingling, loss of bowel or bladder control, or weakness. He did not hit his head. - Related Data Allergies Allergy/AdvReac Type Severity Reaction Status Date / Time No Known Allergies Allergy Verified 09/15/20 20:42 Home Meds: Home Meds NK [No Known Home Meds] 09/15/20 [History] Past Medical History HEENT History: Reports: Impaired Vision Cardiovascular History: Reports: None Respiratory History: Reports: None Gastrointestinal History: Reports: None Genitourinary History: Reports: None Musculoskeletal History: Reports: Fracture, Neck Pain, Chronic, Other (See Below) Other Musculoskeletal History: thumb. s/p septic bursitis L knee 07/07/19 Neurological History: Reports: None Psychiatric History: Reports: None Endocrine/Metabolic History: Reports: Obesity/BMI 30+ Hematologic History: Reports: None Immunologic History: Reports: None Oncologic (Cancer) History: Reports: None Dermatologic History: Reports: Cellulitis - Infectious Disease History Infectious Disease History: Reports: Chicken Pox, Mononucleosis, Mumps - Past Surgical History HEENT Surgical History: Reports: Myringotomy w Tube(s) GI Surgical History: Reports: None Social & Family History - Family History Family Medical History: No Pertinent Family History - Tobacco Use Tobacco Use Status *Q: Never Tobacco User - Caffeine Use Caffeine Use: Reports: Soda - Recreational Drug Use Recreational Drug Use: No ED ROS GENERAL - Review of Systems Review Of Systems: See Below Constitutional: Reports: No Symptoms HEENT: Reports: No Symptoms Respiratory: Reports: No Symptoms Cardiovascular: Reports: No Symptoms Endocrine: Reports: No Symptoms GI/Abdominal: Reports: No Symptoms : Reports: Hematuria Musculoskeletal: Reports: Muscle Stiffness Skin: Reports: No Symptoms Neurological: Reports: No Symptoms Psychiatric: Reports: No Symptoms Hematologic/Lymphatic: Reports: No Symptoms Immunologic: Reports: No Symptoms ED EXAM, RENAL/ - Physical Exam Exam: See Below Exam Limited By: No Limitations General Appearance: Alert, No Apparent Distress Eye Exam: Bilateral Eye: EOMI, PERRL Head: Atraumatic, Normocephalic Neck: Normal Inspection, Supple, Non-Tender Respiratory/Chest: No Respiratory Distress, Lungs Clear, Normal Breath Sounds, Chest Non-Tender Cardiovascular: Normal Peripheral Pulses, Regular Rate, Rhythm, No Murmur GI/Abdominal: Normal Bowel Sounds, Soft, Non-Tender Back Exam: Normal Inspection, Full Range of Motion. No: CVA Tenderness (R), CVA Tenderness (L), Muscle Spasm, Paraspinal Tenderness, Vertebral Tenderness Extremities: Normal Inspection, Normal Range of Motion Neurological: Alert, Oriented, Normal Cognition, No Motor/Sensory Deficits Psychiatric: Normal Affect, Normal Mood Skin Exam: Warm, Dry Lymphatic: No Adenopathy Course - Vital Signs Last Recorded V/S: Last Vital Signs Temp 37.3 C 09/15/20 20:38 Pulse 100 09/15/20 20:38 Resp 18 09/15/20 20:38 BP 121/81 09/15/20 20:38 Pulse Ox 96 09/15/20 20:38 - Orders/Labs/Meds Orders: Active Orders 24 hr Category Date Time Status Sodium Chloride 0.9% [Normal Saline] 89 ml Med 09/15/20 21:00 Active IV ASDIRECTED Sodium Chloride 0.9% [Saline Flush] Med 09/15/20 20:59 Active 10 ml FLUSH ASDIRECTED PRN Saline Lock Insert [OM.PC] Routine Oth 09/15/20 20:59 Ordered Medication Orders Sodium Chloride (Normal Saline) 89 mls @ 3 mls/sec IV ASDIRECTED VICTORIA Last Admin: 09/15/20 21:18 Dose: 3 mls/sec Documented by: MARIO Sodium Chloride (Saline Flush) 10 ml FLUSH ASDIRECTED PRN PRN Reason: Keep Vein Open Last Admin: 09/15/20 21:18 Dose: 10 ml Documented by: [facility] Labs: Laboratory Tests 09/15/20 Range/Units 20:46 Urine Color Brown A (YELLOW) Urine Appearance Turbid A (CLEAR) Urine pH 6.0 (5.0-8.0) Ur Specific [place] >= 1.030 (1.008-1.030) Urine Protein >=300 H (NEGATIVE) mg/dL Urine Glucose (UA) Negative (NEGATIVE) mg/dL Urine Ketones 15 H (NEGATIVE) mg/dL Urine Occult Blood Large H (NEGATIVE) Urine Nitrite Positive H (NEGATIVE) Urine Bilirubin Small H (NEGATIVE) Urine Urobilinogen 1.0 (0.2-1.0) EU/dL Ur Leukocyte Esterase Small H (NEGATIVE) Urine RBC Semi-packed H (0-5) Urine WBC 10-20 H (0-5) Ur Epithelial Cells Few Amorphous Sediment Not seen Urine Bacteria Many Urine Mucus Not seen Meds: Medications Generic Name Dose Route Start Last Admin Trade Name Kenzie PRN Reason Stop Dose Admin Sodium Chloride 89 mls @ 3 mls/sec 09/15/20 21:00 09/15/20 21:18 Normal Saline IV 3 mls/sec ASDIRECTED VICTORIA Administration Sodium Chloride 10 ml 09/15/20 20:59 09/15/20 21:18 Saline Flush FLUSH 10 ml ASDIRECTED PRN Administration Keep Vein Open Discontinued Medications Generic Name Dose Route Start Last Admin Trade Name Kenzie PRN Reason Stop Dose Admin Iopamidol 150 ml 09/15/20 21:00 09/15/20 21:18 Isovue-300 (61%) IV 150 ml . DIRECTED VICTORIA Administration Sodium Chloride 10 ml 09/15/20 20:56 09/15/20 21:13 Saline Flush FLUSH 09/15/20 20:57 10 ml ONETIME ONE Administration - Re-Assessments/Exams Free Text/Narrative Re-Assessment/Exam: 09/15/20 21:55 I reviewed the findings of the CT of the abdomen and pelvis with contrast. The patient has a 2.2 cm cholelithiasis without obstruction. There is no evidence for cholecystitis. He has a very thickened bladder wall at 1.1 cm with para cystic stranding worrisome for an acute cystitis. His urinalysis would concur with this with packed RBCs and 20-50 WBCs. He has positive nitrite and leukocyte esterase consistent with acute cystitis. We will put him on cephalexin 500 mg twice daily for 7 days. I like him to follow-up with his primary care provider to week for recheck of his urine to ensure that nothing else is going on as a neoplasm could be harbored in this very thick bladder wall. He was also advised to discuss management of his cholelithiasis with his primary care provider who may elect to refer him to a surgeon for cholecystectomy. The patient is asymptomatic with it at this time and may simply watch things as well. Indications return to the ED were discussed and patient was discharged in satisfactory condition. Departure - Departure Time of Disposition: 21:48 Disposition: Home, Self-Care 01 Condition: Good Clinical Impression: Acute cystitis with hematuria Cholelithiasis Qualifiers: Cholelithiasis location: gallbladder Cholecystitis presence: without cholecystitis Biliary obstruction: without biliary obstruction Qualified Code(s): K80.20 - Calculus of gallbladder without cholecystitis without obstruction - Discharge Information *PRESCRIPTION DRUG MONITORING PROGRAM REVIEWED*: Not Applicable *COPY OF PRESCRIPTION DRUG MONITORING REPORT IN PATIENT LYNSEY: Not Applicable Instructions: Cholelithiasis, [id number], Urinary Tract Infection, Adult, [id number] Referrals: PCP,None [Primary Care Provider] - Forms: ED Department Discharge Care Plan Goals: It appears that your blood in the urine is due to an infection in your bladder. Your CTA of the abdomen and pelvis shows significant thickening of the bladder wall. We are going to put you on an antibiotic to treat this infection called cephalexin which you will take twice daily for the next 7 days. I would like you to follow-up with your primary care provider in the [facility] towards the end of next week for recheck of your urine to ensure that it is improved. As we discussed, the concern is that with thickening of the bladder wall that may be hiding a neoplasm and may require further evaluation of the bleeding in the urine does not improve. As for your gallstone, I would discuss treatment options of this including medication called Actigall or ursodiol versus surgical intervention versus conservative observation. Sepsis Event Note (ED) - Evaluation Sepsis Screening Result: No Definite Risk - Focused Exam Vital Signs: Vital Signs Temp Pulse Resp BP Pulse Ox 09/15/20 20:38 37.3 C 100 18 121/81 96 - Problem List & Annotations (1) Acute cystitis with hematuria SNOMED Code(s): 49294961, 53630328 Code(s): N30.01 - ACUTE CYSTITIS WITH HEMATURIA Status: Acute Priority: High Current Visit: Yes (2) Cholelithiasis SNOMED Code(s): 017130435 Code(s): K80.20 - CALCULUS OF GALLBLADDER W/O CHOLECYSTITIS W/O OBSTRUCTION Status: Chronic Priority: Medium Current Visit: Yes Qualifiers: Cholelithiasis location: gallbladder Cholecystitis presence: without cholecystitis Biliary obstruction: without biliary obstruction Qualified Code(s): K80.20 - Calculus of gallbladder without cholecystitis without obstruction - Problem List Review Problem List Initiated/Reviewed/Updated: Yes - My Orders Last 24 Hours: My Active Orders 09/15/20 20:59 Sodium Chloride 0.9% [Saline Flush] 10 ml FLUSH ASDIRECTED PRN Saline Lock Insert [OM.PC] Routine 09/15/20 21:00 Sodium Chloride 0.9% [Normal Saline] 89 ml IV ASDIRECTED - Assessment/Plan Last 24 Hours: My Active Orders 09/15/20 20:59 Sodium Chloride 0.9% [Saline Flush] 10 ml FLUSH ASDIRECTED PRN Saline Lock Insert [OM.PC] Routine 09/15/20 21:00 Sodium Chloride 0.9% [Normal Saline] 89 ml IV ASDIRECTED
== END 2020-09-15 22:06 | disposition home or self-care (01) ==
LOC: JP.ED 20:28
DX: N30.01 Acute cystitis with hematuria (principal); K80.20 Calculus of gallbladder without cholecystitis without obstruction; E66.9 Obesity, unspecified; Z68.41 Body mass index [BMI] 40.0-44.9, adult
CPT/HCPCS: 74177; 81001; 99284; Q9967; 99283